=== PATIENT | male | born 1965 | race Caucasian/White ===

== ENCOUNTER 2016-08-26 11:25 | Emergency (ER) | payer BC ==
[2016-08-26 12:35] VITALS: BP 138/84
--- NOTE | 2016-08-26 12:50 | UC ---
Headache HPI - HPI Summary HPI Summary: three weeks of rapidly cyclining "sinus pressure and headache" on the right side. no obvious congestion, drainage, allergies. He has no focal neuro deficits. no fever. - History Of Current Complaint Chief Complaint: UCGeneralIllness Stated Complaint: SINUS COMPLAINT Time Seen by Provider: 08/26/16 12:33 Hx Obtained From: Patient Onset/Duration: Gradual Onset, Lasting Weeks Onset Of Symptoms: Gradual Timing: Intermittent, Lasting: Character: Dull, Throbbing, Pressure Location of Headache: Frontal, Temporal Aggravating Factor: Nothing Allevating Factors: Other (Noted In Comments) - He has tried decongestants, netti pots. Associated Signs And Symptoms: Positive: Sinus Pressure. Negative: Seizure, Nausea, Vomiting, Fever, Neck Pain, Neck Stiffness, Decreased LOC, Visual Changes - Risk Factors Meningitis Risk Factors: Negative - Allergies/Home Medications Allergies/Adverse Reactions: Allergies Allergy/AdvReac Type Severity Reaction Status Date / Time Rice Allergy GI Upset Verified 05/09/15 17:03 PMH/Surg Hx/FS Hx/Imm Hx Cardiovascular History Of: Reports: Hypertension - Surgical History Surgical History: Yes Surgery Procedure, Year, and Place: r leg benign tumor - Family History Known Family History: Positive: None - no known FH of sinus or ent disease. - Social History Alcohol Use: None Substance Use Type: None Smoking Status (MU): Never Smoked Tobacco - Immunization History Most Recent Influenza Vaccination: none Most Recent Tetanus Shot: unknown Review of Systems All Other Systems Reviewed And Are Negative: Yes Physical Exam Triage Information Reviewed: Yes Appearance: Well-Appearing, No Pain Distress, Well-Nourished Vital Signs: Initial Vital Signs Temp 99.0 F 08/26/16 12:30 Pulse 90 08/26/16 12:30 Resp 16 08/26/16 12:30 BP 138/84 08/26/16 12:30 Pulse Ox 97 08/26/16 12:30 Vital Signs Reviewed: Yes Eye Exam: Normal Eyes: Positive: Conjunctiva Clear, Conjunctiva Inflamed, Other: - EOMI no proptosis. no pain with eye movements.. Negative: Discharge ENT: Positive: Normal ENT inspection, Hearing grossly normal, Pharynx normal, TMs normal. Negative: Pharyngeal erythema, Nasal congestion, Nasal drainage, TM bulging, TM dull, TM red, Tonsillar swelling, Tonsillar exudate, Trismus, Muffled/hoarse voice Neck exam: Normal Neck: Positive: Supple, Nontender, No Lymphadenopathy. Negative: Nuchal Rigidity Respiratory Exam: Normal Respiratory: Positive: Chest non-tender, Lungs clear, Normal breath sounds, No respiratory distress, No accessory muscle use. Negative: Respiratory distress Cardiovascular: Positive: RRR, No Murmur, Pulses Normal. Negative: Tachycardia Abdomen Description: Positive: Nontender, No Organomegaly, Soft Musculoskeletal: Positive: Strength Intact, ROM Intact, No Edema Neurological Exam: Normal, Other - CN III-XII intact. normal narrow based gait. speech intact. Neurological: Positive: Alert, Muscle Tone Normal, Fatigued Psychological Exam: Normal Skin Exam: Normal Skin: Negative: rashes Headache Course/Dx - Course Course Of Treatment: It is difficult to tell if this is right sided headache that is rapidly cycling almost cluster headache in nature. He mentions sinus disease as the cause. we are getting ct as well as ct maxillofacial. If there is sinus disease then we will refer to ent. if no sinus disease, then he will f/ u with pcp. Exam and vitals intact. - Differential Dx/Diagnosis Differential Diagnosis/HQI/PQRI: CO2 Poisoning, CVA, TIA, Epidural Hematoma, Subdural Hematoma, Meningitis, Migraine, Sinus Headache, Subarachnoid Hemorrhage , Temporal Arteritis, Tension Headache, Viral Syndrome Provider Diagnoses: headaches. Discharge - Discharge Plan Condition: Good Disposition: HOME Patient Education Materials: General Headache (ED) Referrals: Anuja Salomon MD [Primary Care Provider] - 1 Day
--- NOTE | 2016-08-26 13:16 | RAD ---
INDICATION: Headaches. Sinus pressure. COMPARISON: None TECHNIQUE: Noncontrast axial source images were acquired from the skull base to the vertex. FINDINGS: Ventricles/sulci: The ventricles and cisterns are normal in size and configuration for age. Brain parenchyma: There is no focal parenchymal finding, evidence of intracranial mass, or intracranial mass effect. Intracranial hemorrhage:None. Extra-axial spaces: There are no abnormal extra axial fluid collections or evidence of extra-axial mass. Calvarium: There is no calvarial fracture or other calvarial abnormality. Scalp: There is no evidence of scalp or extracalvarial soft tissue abnormality. Paranasal sinuses/mastoid: The paranasal sinuses and mastoid air cells are clear. Other: None. IMPRESSION: No acute renal findings.
--- NOTE | 2016-08-26 13:17 | RAD ---
CLINICAL HISTORY: Right-sided headache and sinus pressure COMPARISON: None TECHNIQUE: Contiguous axial CT images were obtained through the paranasal sinuses, without intravenous contrast, with coronal and sagittal multiplanar reformations. FINDINGS: NASAL CAVITY: Septum: The nasal septum is deviated to the left. Right: Clear Left: Clear SINUSES AND DRAINAGE PATHWAYS: Frontal sinuses: Unremarkable. Maxillary sinuses: Unremarkable Ethmoid sinuses: Unremarkable. Ostiomeatal complex: Patent without obstruction or occlusion. Sphenoid sinuses: Unremarkable. Anatomic variations: No significant variations. Orbits: Unremarkable. Anterior cranial fossa: Normal. Other findings: None. IMPRESSION: UNREMARKABLE CT OF THE PARANASAL SINUSES. NO EROSION, OSTEITIS, OR FLUID LEVEL
== END 2016-08-26 13:26 | disposition home or self-care (01) ==
LOC: UCCORT 11:25
DX: R51 Headache (principal)
CPT/HCPCS: 70450; 70486; 99211; G0463

== ENCOUNTER 2018-09-09 07:12 | Emergency (ER) | payer BC ==
[2018-09-09 07:22] VITALS: BP 138/82
--- NOTE | 2018-09-09 07:27 | UC ---
FLU HPI - HPI Summary HPI Summary: 2 DAYS OF COUGH, CONGESTION, BODY ACHES, FATIGUE, DOWNING, MYALGIAS. MILD DOWNING. TEMP 100 TODAY. NO N/V. DID HAVE FLU SHOT THIS SEASON. - History of Current Complaint Chief Complaint: UCGeneralIllness Stated Complaint: FEVER,COUGH,BODYACHES Time Seen by Provider: 09/09/18 07:25 Hx Obtained From: Patient Onset/Duration: Gradual Onset, Lasting Days, Still Present Severity Currently: Moderate Severity Initially: Moderate Pain Intensity: 0 Pain Scale Used: 0-10 Numeric Associated Signs & Symptoms: Positive: Fever, Myalgia, Cough, Sore Throat, Nasal Congestion, Headache - Allergy/Home Medications Allergies/Adverse Reactions: Allergies Allergy/AdvReac Type Severity Reaction Status Date / Time rice AdvReac GI Upset Verified 09/09/18 07:20 PMH/Surg Hx/FS Hx/Imm Hx Cardiovascular History: Hypertension - Surgical History Surgical History: Yes Surgery Procedure, Year, and Place: r leg benign tumor - Family History Known Family History: Positive: None - no known FH of sinus or ent disease. - Social History Alcohol Use: None Substance Use Type: None Smoking Status (MU): Never Smoked Tobacco - Immunization History Most Recent Influenza Vaccination: none Most Recent Tetanus Shot: unknown Review of Systems All Other Systems Reviewed And Are Negative: Yes Constitutional: Positive: Fever, Chills, Fatigue ENT: Positive: Sore Throat, Nasal Discharge Respiratory: Positive: Cough Cardiovascular: Positive: Negative Gastrointestinal: Positive: Negative Musculoskeletal: Positive: Myalgia Neurological: Positive: Headache Physical Exam Triage Information Reviewed: Yes Appearance: Well-Appearing, No Pain Distress, Well-Nourished Vital Signs: Initial Vital Signs Temp 98.7 F 09/09/18 07:20 Pulse 112 09/09/18 07:20 Resp 17 09/09/18 07:20 BP 138/82 09/09/18 07:20 Pulse Ox 97 09/09/18 07:20 Laboratory Tests 09/09/18 07:28 Influenza A (Rapid) Positive A Vital Signs Reviewed: Yes Eyes: Positive: Conjunctiva Clear ENT: Positive: Hearing grossly normal, Pharynx normal, TMs normal Neck: Positive: Supple, Nontender, No Lymphadenopathy Respiratory Exam: Normal Cardiovascular: Positive: Tachycardia Abdomen Description: Positive: Soft Musculoskeletal: Positive: No Edema Neurological: Positive: Alert Psychological: Positive: Age Appropriate Behavior Skin: Negative: Rashes Flu Course/Dx - Differential Dx/Diagnosis Provider Diagnosis: Influenza A Discharge - Sign-Out/Discharge Documenting (check all that apply): Patient Departure All imaging exams completed and their final reports reviewed: No Studies - Discharge Plan Condition: Stable Disposition: HOME Prescriptions: Oseltamivir CAP* [Tamiflu CAP*] 75 mg PO BID #10 cap Patient Education Materials: Influenza (ED) Referrals: Anuja Salomon MD [Primary Care Provider] - Additional Instructions: SWAB POSITIVE FOR INFLUENZA A. TAMIFLU TWICE DAILY FOR 5 DAYS. OTC MEDS NEEDED FOR FEVER, BODY ACHES. STAY WELL HYDRATED AND RESTED. SEEK FOLLOW-UP IF YOU ARE NOT IMPROVING EXPECTED. - Billing Disposition and Condition Condition: STABLE Disposition: Home
[2018-09-09 07:32] LABS: Influenza A Molecular POSITIVE (Negative)
== END 2018-09-09 08:10 | disposition home or self-care (01) ==
LOC: UCCORT 07:12
DX: J10.1 Influenza due to other identified influenza virus with other respiratory manifestations (principal); I10 Essential (primary) hypertension; Z91.09 Other allergy status, other than to drugs and biological substances
CPT/HCPCS: 99212; G0463

== ENCOUNTER 2018-10-06 21:54 | Emergency (ER) | payer BC ==
[2018-10-06 22:12] VITALS: BP 145/95
--- NOTE | 2018-10-06 22:24 | UC ---
Hypertension HPI - HPI Summary HPI Summary: 53 yo male noted an elevated BP at mall today no cp or sob has chronic headaches non smoker recent URI - History of Current Complaint Chief Complaint: UCGeneralIllness Stated Complaint: BLOOD PRESSURE CHECK Time Seen by Provider: 10/06/18 21:59 Hx Obtained From: Patient Onset/Duration: Gradual Onset Aggravating Factor(s): Other - has not been sleeping well lately Alleviating Factor(s): Rest Associated Signs And Symptoms: Negative: Chest Pain, Vision Changes, Anxiety Current Medications: Other - none - Allergies/Home Medications Allergies/Adverse Reactions: Allergies Allergy/AdvReac Type Severity Reaction Status Date / Time rice AdvReac GI Upset Verified 10/06/18 22:07 Home Medications: Home Medications Aspirin/Acetaminophen/Caffeine [Excedrin Migraine Caplet] 2 each PO Q12H PRN [History Confirmed 10/06/18] PMH/Surg Hx/FS Hx/Imm Hx Previously Healthy: Yes Psychological History: Anxiety - Surgical History Surgical History: Yes Surgery Procedure, Year, and Place: r leg benign tumor - Family History Known Family History: Positive: None - no known FH of sinus or ent disease., Hypertension - Social History Alcohol Use: None Substance Use Type: None Smoking Status (MU): Never Smoked Tobacco - Immunization History Most Recent Influenza Vaccination: none Most Recent Tetanus Shot: 04/20/15 Review of Systems All Other Systems Reviewed And Are Negative: Yes Constitutional: Positive: Negative Skin: Positive: Negative Eyes: Positive: Negative ENT: Positive: Negative Respiratory: Positive: Negative Cardiovascular: Positive: Negative Gastrointestinal: Positive: Negative Genitourinary: Positive: Negative Motor: Positive: Negative Neurovascular: Positive: Negative Musculoskeletal: Positive: Negative Neurological: Positive: Negative Psychological: Positive: Negative Physical Exam Triage Information Reviewed: Yes Appearance: Well-Appearing, No Pain Distress, Well-Nourished Vital Signs: Initial Vital Signs Temp 98 F 10/06/18 22:05 Pulse 88 10/06/18 22:05 Resp 18 10/06/18 22:05 BP 145/95 10/06/18 22:05 Pulse Ox 99 10/06/18 22:05 Vital Signs Reviewed: Yes Eyes: Positive: Conjunctiva Clear, Other: - fundi- no H/E, no av nicking ENT: Positive: Hearing grossly normal. Negative: Nasal congestion, Nasal drainage, Trismus, Muffled voice, Hoarse voice Neck: Positive: Supple, Nontender, No Lymphadenopathy Respiratory: Positive: Lungs clear, Normal breath sounds, No respiratory distress, No accessory muscle use Cardiovascular: Positive: RRR, No Murmur Musculoskeletal: Positive: ROM Intact, No Edema Neurological: Positive: Alert Psychological Exam: Normal Skin Exam: Normal Hypertension Course/Dx - Differential Dx/Diagnosis Provider Diagnosis: Elevated BP without diagnosis of hypertension Discharge - Sign-Out/Discharge Documenting (check all that apply): Patient Departure All imaging exams completed and their final reports reviewed: No Studies - Discharge Plan Condition: Stable Disposition: HOME Referrals: Anuja Salomon MD [Primary Care Provider] - 2 Weeks Additional Instructions: your BP here was 145/95 At present you do not need to be started on an antihypertensive but this warrants follow up recheck in a few weeks - Billing Disposition and Condition Condition: STABLE Disposition: Home
== END 2018-10-06 22:29 | disposition home or self-care (01) ==
LOC: UCCORT 21:54
DX: R03.0 Elevated blood-pressure reading, without diagnosis of hypertension (principal)
CPT/HCPCS: 99211; G0463

== ENCOUNTER 2019-01-20 07:29 | Emergency (ER) | payer BC ==
--- OUTSIDE RECORDS SUMMARY | 2019-01-20 07:38 | XMS REPORT | Continuity of Care Document ---
:1965 External Reference #:[id number] Author Name Anuja Salomon MD Address [address] [place] [id number] Care Team Providers Name Role Phone Anuja Salomon MD Care Team Information [employer] Unavailable Payers Date Identification Numbers Payment Provider Subscriber Policy Number: [id number] [employer] Norma Montalvo PayID: [id number] [address] [address] [place] [address] Problems Active Problems Provider Date Vitamin D deficiency Anuja Salomon MD Onset: 10/28/2013 Phobia Anuja Salomon MD Onset: 07/20/2013 Anxiety state Anuja Salomon MD Onset: 07/20/2013 Pure hyperglyceridemia Anuja Salomon MD Onset: 01/05/2015 Insomnia Anuja Salomon MD Onset: 12/31/2016 Hand joint stiff Anuja Salomon MD Onset: 01/01/2018 Impaired fasting glycaemia Anuja Salomon MD Onset: 05/18/2018 Resolved Problems Impaired fasting glycaemia Anuja Salomon MD Onset: 01/05/2015 Resolved: 07/14/2015 Benign essential hypertension Anuja Salomon MD Onset: 07/20/2013 Resolved: 11/23/2018 Family History Date Family Member(s) Observation Comments Father Hypertension Mother Hypertension Mother IBS Social History Type Date Description Comments Sex Unknown Education Highest level completed, Associates Degree Marital Status Lives With Spouse Lives With Daughter Pets 1 cat 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, 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 ETOH Use Denies alcohol use Tobacco Use Start: Unknown Patient has never smoked Allergies, Adverse Reactions, Alerts Description No Known Drug Allergies Medications Active Medications SIG Qnty Indications Ordering Date Provider Metformin HCL Take 1 Tablet By 60tabs E11.65 Anuja Salomon, 01/07/2019 500mg Mouth Twice MD Tablets Daily Venlafaxine HCL ER take 1 capsule 30caps F41.1 Anuja Salomon, 11/30/2018 75mg by mouth every MD Caps ER 24HR day Bupropion take 1 tablet by 30tabs F41.1 Anuja Salomon, 09/04/2018 Hydrochloride ER (XL) mouth every day MD 150mg Tablets ER 24HR Hydrocortisone apply twice a 28.350gm K64.9 Anuja Salomon, 11/13/2016 2.5% Cream day if needed MD until resolved Ondansetron 1 tablet by 30tabs F40.9 Anuja Salomon, 10/01/2016 4mg Tablets mouth every 8 MD Dispers hours as needed for nausea/vomiting Excedrin Extra as needed for Unknown Strength migraines [phone] Tablets History Medications Venlafaxine HCL ER 1 by mouth every 90tabs F41.1 Anuja Salomon, 2018 - 75mg day 11/30/2018 Tablets ER 24HR Venlafaxine HCL ER 1 by mouth every 90caps F41.1 Anuja Salomon, 2017 - 150mg day 10/14/2018 Caps ER 24HR Pramipexole 1 po every hs 30tabs G47.00 Anuja Salomon, 12/31/2016 - Dihydrochloride 04/03/2017 0.125mg Tablets Bupropion HCL ER (XL) 1 by mouth every 90tabs F41.1 Anuja Salomon, 2016 - 150mg day 09/04/2018 Tablets ER 24HR Verapamil HCL 1 po tid 90tabs R51 Anuja Salomon, 10/30/2016 - 80mg Tablets 11/13/2016 Prednisone 6 pills by mouth 21tabs R51 Anuja Salomon, 10/01/2016 - 10mg Tablets x 1 dose today, 10/30/2016 then decrease dose by 1 pill daily until gone. Wellbutrin XL 1 by mouth every 90tabs F41.1 Anuja Salomon, 04/21/2015 - 150mg Tablets day 12/31/2016 ER 24HR Venlafaxine HCL ER Take 1 Capsule 30caps F41.1 rBuce Lott, 01/23/2015 - 75mg By Mouth Every DO 05/17/2018 Caps ER 24HR Day Venlafaxine HCL ER 1 by mouth every 30caps Anuja Salomon, 01/05/2015 - 150mg day MD 01/23/2015 Caps ER 24HR Venlafaxine HCL ER Take One Capsule 90caps Anuja Salomon, 10/24/2014 - 75mg By Mouth Every MD 01/05/2015 Caps ER 24HR Day Ibuprofen 3 po q qd Anuja Salomon, 07/20/2013 - 200mg Tablets MD 05/17/2018 Ondansetron HCL 1 po q 4 hours 30Tabs Anuja Salomon, 07/20/2013 - 4mg Tablets prn nausea MD 10/01/2016 Effexor XR take one capsule 90caps Anuja Salomon, - 75mg Caps ER by mouth every MD 01/05/2015 24HR day Wellbutrin XL 1 by mouth every 90tabs Anuja Salomon, - 150mg Tablets day MD 01/31/2015 ER 24HR Advil 2 tab three Unknown - 200mg Tablets times a day as 10/06/2018 needed Immunizations CPT Code Status Date Vaccine Lot # [id number] Given 05/07/2018 Influenza Virus Vaccine,Quadrivalent,Split,Preserv Free, 0.5mL,Im Q2039 Given 06/12/2017 Flu Vaccine NOS Q2037 Given 06/20/2015 Fluvirin Immunization 19150 Given 04/21/2015 Tetanus And Diptheria Toxoids For Adult Use-preservative free 94286 Given 04/06/2012 Tdap (Adacel) Ages 7 And Above Only 15006 Refused 05/18/2018 Shingrix (Shingles) Zoster Vaccine HZV, Recombinant , Subunit, Adj Vital Signs Date Vital Result Comment 01/07/2019 1:58pm Weight 180.00 lb Heart Rate 84 /min BP Systolic 124 mmHg BP Diastolic 76 mmHg Respiratory Rate 18 /min Height 68.75 inches 5'8.75" O2 % BldC Oximetry 98 % Ra BMI (Body Mass Index) 26.8 kg/m2 11/23/2018 4:20pm Weight 190.00 lb Heart Rate 94 /min BP Systolic 130 mmHg BP Diastolic 78 mmHg Respiratory Rate 18 /min Height 68.75 inches 5'8.75" O2 % BldC Oximetry 98 % Ra BMI (Body Mass Index) 28.3 kg/m2 10/07/2018 10:43am Weight 192.00 lb Heart Rate 97 /min BP Systolic 132 mmHg BP Diastolic 88 mmHg Respiratory Rate 18 /min Height 68.75 inches 5'8.75" O2 % BldC Oximetry 98 % Ra BMI (Body Mass Index) 28.6 kg/m2 05/18/2018 3:35pm Weight 188.00 lb Heart Rate 90 /min BP Systolic 132 mmHg BP Diastolic 76 mmHg Respiratory Rate 18 /min Height 68.75 inches 5'8.75" O2 % BldC Oximetry 99 % Ra BMI (Body Mass Index) 28.0 kg/m2 02/10/2018 2:52pm Body Temperature 98.2 F Weight 190.38 lb Heart Rate 72 /min BP Systolic 124 mmHg BP Diastolic 78 mmHg Respiratory Rate 18 /min Height 68.75 inches 5'8.75" 01/01/18 BMI (Body Mass Index) 28.3 kg/m2 01/01/2018 4:04pm Weight 190.00 lb Heart Rate 76 /min BP Systolic 110 mmHg BP Diastolic 80 mmHg Respiratory Rate 18 /min Height 68.75 inches 5'8.75" 01/01/18 BMI (Body Mass Index) 28.3 kg/m2 11/19/2017 3:50pm Weight 195.00 lb Heart Rate 72 /min BP Systolic 124 mmHg BP Diastolic 78 mmHg Respiratory Rate 18 /min Height 68.75 inches 5'8.75" 08/27/16 BMI (Body Mass Index) 29.0 kg/m2 07/04/2017 4:12pm Weight 188.00 lb Heart Rate 76 /min BP Systolic 122 mmHg BP Diastolic 78 mmHg Respiratory Rate 18 /min Height 68.75 inches 5'8.75" 08/27/16 BMI (Body Mass Index) 28.0 kg/m2 04/03/2017 4:17pm Weight 190.00 lb Heart Rate 72 /min BP Systolic 120 mmHg BP Diastolic 72 mmHg Respiratory Rate 18 /min Height 68.75 inches 5'8.75" 08/27/16 BMI (Body Mass Index) 28.3 kg/m2 12/31/2016 2:58pm Weight 193.00 lb Heart Rate 76 /min BP Systolic 102 mmHg BP Diastolic 70 mmHg Respiratory Rate 18 /min Height 68.75 inches 5'8.75" 08/27/16 BMI (Body Mass Index) 28.7 kg/m2 11/13/2016 9:52am Weight 190.00 lb Heart Rate 76 /min BP Systolic 122 mmHg BP Diastolic 70 mmHg Respiratory Rate 18 /min Height 68.75 inches 5'8.75" 08/27/16 BMI (Body Mass Index) 28.3 kg/m2 10/30/2016 9:46am Body Temperature 95.9 F Weight 190.00 lb Heart Rate 76 /min BP Systolic 122 mmHg BP Diastolic 90 mmHg Respiratory Rate 18 /min Height 68.75 inches 5'8.75" 08/27/16 BMI (Body Mass Index) 28.3 kg/m2 10/01/2016 2:36pm Weight 193.00 lb Heart Rate 96 /min BP Systolic 138 mmHg BP Diastolic 88 mmHg Respiratory Rate 17 /min Height 68.75 inches 5'8.75" 08/27/16 BMI (Body Mass Index) 28.7 kg/m2 08/27/2016 3:50pm Weight 195.00 lb Heart Rate 76 /min BP Systolic 130 mmHg BP Diastolic 70 mmHg Respiratory Rate 18 /min Height 68.75 inches 5'8.75" 08/27/16 BMI (Body Mass Index) 29.0 kg/m2 03/28/2016 3:09pm Weight 192.00 lb Heart Rate 64 /min BP Systolic 110 mmHg BP Diastolic 70 mmHg Respiratory Rate 18 /min Height 68.75 inches 5'8.75" 09/20/15 BMI (Body Mass Index) 28.6 kg/m2 10/11/2015 10:05am Body Temperature 97.8 F Weight 187.00 lb Heart Rate 84 /min BP Systolic 120 mmHg BP Diastolic 80 mmHg Respiratory Rate 18 /min Height 68.75 inches 5'8.75" 09/20/15 BMI (Body Mass Index) 27.8 kg/m2 09/20/2015 11:30am Body Temperature 96.4 F Weight 186.00 lb Heart Rate 76 /min BP Systolic 122 mmHg BP Diastolic 80 mmHg Respiratory Rate 18 /min Height 68.75 inches 5'8.75" 09/20/15 BMI (Body Mass Index) 27.7 kg/m2 07/14/2015 9:58am Weight 189.00 lb Heart Rate 76 /min BP Systolic 118 mmHg BP Diastolic 70 mmHg Respiratory Rate 18 /min Height 68.75 inches 5'8.75" 01/05/15 BMI (Body Mass Index) 28.1 kg/m2 04/21/2015 10:27am Weight 186.00 lb Heart Rate 60 /min BP Systolic 130 mmHg BP Diastolic 90 mmHg Respiratory Rate 18 /min Height 68.75 inches 5'8.75" 01/05/15 BMI (Body Mass Index) 27.7 kg/m2 01/31/2015 3:09pm Weight 185.00 lb Heart Rate 76 /min BP Systolic 112 mmHg BP Diastolic 80 mmHg Respiratory Rate 18 /min Height 68.75 inches 5'8.75" 01/05/15 BMI (Body Mass Index) 27.5 kg/m2 01/05/2015 1:36pm Weight 190.00 lb Heart Rate 80 /min BP Systolic 124 mmHg BP Diastolic 68 mmHg Respiratory Rate 18 /min Height 68.75 inches 01/05/15 BMI (Body Mass Index) 28.3 kg/m2 08/22/2014 4:09pm Body Temperature 98.6 F Weight 187.00 lb Heart Rate 90 /min BP Systolic 110 mmHg BP Diastolic 82 mmHg Respiratory Rate 20 /min Height 68.75 inches 5'8.75" (Done On 07/20/13) O2 Saturation Level with Exercise 93 % BMI (Body Mass Index) 27.8 kg/m2 07/25/2014 2:25pm Body Temperature 98.8 F Weight 185.00 lb Heart Rate 72 /min BP Systolic 130 mmHg BP Diastolic 88 mmHg Respiratory Rate 18 /min Height 68.75 inches 5'8.75" (Done On 07/20/13) BMI (Body Mass Index) 27.5 kg/m2 05/02/2014 3:20pm Weight 183.00 lb Heart Rate 76 /min BP Systolic 112 mmHg BP Diastolic 72 mmHg Respiratory Rate 18 /min Height 68.75 inches 5'8.75" (Done On 07/20/13) 02/02/2014 9:31am Weight 183.00 lb Heart Rate 80 /min BP Systolic 112 mmHg BP Diastolic 70 mmHg Respiratory Rate 18 /min Height 68.75 inches 5'8.75" (Done On 07/20/13) 10/28/2013 2:50pm Weight 179.00 lb Heart Rate 76 /min BP Systolic 102 mmHg BP Diastolic 60 mmHg Respiratory Rate 18 /min Height 68.75 inches 5'8.75" (Done On 07/20/13) 10/18/2013 3:29pm Body Temperature 97.6 F Weight 180.00 lb Heart Rate 80 /min BP Systolic 110 mmHg BP Diastolic 80 mmHg Respiratory Rate 18 /min Height 68.75 inches 5'8.75" (Done On 07/20/13) O2 % BldC Oximetry 96 % 09/01/2013 10:41am Weight 180.00 lb Heart Rate 72 /min BP Systolic 110 mmHg BP Diastolic 80 mmHg Respiratory Rate 18 /min Height 68.75 inches 5'8.75" (Done On 07/20/13) 08/05/2013 2:32pm Weight 178.00 lb Heart Rate 88 /min BP Systolic 120 mmHg BP Diastolic 64 mmHg Respiratory Rate 18 /min Height 68.75 inches 5'8.75" (Done On 07/20/13) 07/20/2013 10:34am Weight 179.00 lb Heart Rate 80 /min BP Systolic 120 mmHg BP Diastolic 74 mmHg Respiratory Rate 18 /min Height 68.75 inches 5'8.75" Results Test Date Facility Test Result H/L Range Note Laboratory test 12/28/2018 [facility] Insulin 14.0 mIU/L (2.6-37.6) 1, 2 finding Lipid 12/28/2018 [facility] Cholesterol 227 mg/dL High 50-199 Triglycerides 388 mg/dL High 30-200 HDL 30 mg/dL 29-71 3 Chol/ HDL Ratio 7.6 ratio High 4.0-6.7 VLDL 78 mg/dL High 2-29 LDL (Calc) 120 mg/dL High 20-99 4 Comprehensive Met Panel-[facility] 12/28/2018 [facility] Sodium 136 mmol/L 135- 146 5 Potassium 4.3 mmol/L 3.5-5.2 Chloride# 100 mmol/L 97-110 6 Carbon Dioxide 26 mmol/L 24-34 Calcium 9.4 mg/dL 8.5-10.5 7 Glucose 295 mg/dL High 70-105 BUN 15 mg/dL 6-26 Creatinine 0.9 mg/dL 0.5-1.4 Total Protein 6.3 g/dL 6.0-8.0 Albumin 4.7 g/dL 3.6-4.9 Globulin 1.6 g/dL Low 2.0-3.5 A/G Ratio 2.9 Ratio High 1.0-2.2 Total Bilirubin 0.9 mg/dL 0.1-1.3 Alkaline Phosphatase 84 U/L 24-140 Alt 41 U/L 3-42 Ast 26 U/L 8-42 Anion Gap 10 mmol/L 5-15 8 Female Egfr 73 >60 9 Male Egfr 98 >60 10 [facility] A1[facility] 8.6 % High 4.1-5.9 Estimated Average Glucose Calc 200 mg/dL High 71-140 Lipid 11/13/[facility] Cholesterol 282 mg/dL High 50-199 11 Triglycerides 1806 mg/dL High 30-200 12 HDL 29 mg/dL 29-71 13 Chol/ HDL Ratio 9.6 ratio High 4.0-6.7 Hemoglobin A1c 11/13/[facility] A1c 8.2 % High 4.1-5.9 Estimated Average Glucose Calc 189 mg/dL High 71-140 Laboratory test finding 11/13/2018 [facility] PSA 1.520 ng/mL 0.000-4.000 14 CBC with Auto Diff-[facility]cm[facility] 11[facility]13[facility] WBC 6.4 K/uL 4.1-11.0 RBC 4.66 M/uL 4.60-6.10 Hemoglobin 15.0 gm/dL 13.5-18.0 Hematocrit 42.3 % 41.0-53.0 MCV 90.8 fL 80.0-97.0 MCH 32.2 pg High 27.0-32.0 MCHC 35.5 g/dL 32.0-36.0 15 RDW 14.0 % 11.5-14.5 PLT Count 178 K/ul 140-400 MPV 8.6 FL 7.1-10.7 Neutrophil 61.2 % 35.0-75.0 Lymphocyte 29.5 % 16.0-52.0 Monocyte 7.3 % 2.0-10.0 Eosinophil 1.3 % 0.0-5.0 Basophil 0.7 % 0.0-4.0 Abs Neutrophils 3.9 K/uL 2.1-8.0 Abs Lymphocytes 1.9 K/uL 0.8-5.5 Abs Monocytes 0.5 K/uL 0.1-1.0 Abs Eosinophils 0.1 K/uL 0.0-0.5 Abs Basophils 0.0 K/uL 0.0-0.3 Laboratory test finding 11/13/2018 [facility] TSH 2.15 uIU/mL 0.35-4.94 Comprehensive Met Panel-[facility] 11/13/2018 [facility] Sodium 134 mmol/L Low 135 -146 16 Potassium 4.2 mmol/L 3.5-5.2 17 Chloride# 98 mmol/L 97-110 18 Carbon Dioxide 24 mmol/L 24-34 Calcium 9.4 mg/dL 8.5-10.5 19 Glucose 322 mg/dL High 70-105 BUN 15 mg/dL 6-26 Creatinine 0.8 mg/dL 0.5-1.4 Total Protein 6.6 g/dL 6.0-8.0 Albumin 4.7 g/dL 3.6-4.9 Globulin 1.9 g/dL Low 2.0-3.5 A/G Ratio 2.5 Ratio High 1.0-2.2 Total Bilirubin 0.9 mg/dL 0.1-1.3 Alkaline Phosphatase 71 U/L 24-140 Alt 64 U/L High 3-42 Ast 41 U/L 8-42 Anion Gap 12 mmol/L 5-15 20 Female Egfr 81 >60 21 Male Egfr 101 >60 22 Laboratory test 05/28/2018 [facility](Fecal Occult Negative Negative finding Blood) Hemoglobin A1c 05/11/2018 [facility] Hemoglobin A1c 6.1 % High 4.1-5.9 23 Estimated Average Glucose Calc 128 mg/dL 71-140 Basic (BMP) 05/11/2018 [facility] Sodium 142 mmol/L 135-146 24 Potassium 4.3 mmol/L 3.5-5.2 Chloride# 104 mmol/L 97-110 25 Carbon Dioxide 30 mmol/L 24-34 Glucose 145 mg/dL High 70-105 BUN 11 mg/dL 6-26 Creatinine 0.9 mg/dL 0.5-1.4 Calcium 9.4 mg/dL 8.5-10.2 Non Olga Egfr >60 >60 26 Olga Egfr >60 >60 27 Anion Gap 8 mmol/L 5-15 28 Comprehensive Met Panel-[facility] 01/07/2018 [facility] Sodium 138 mmol/L 135- 146 29, 30 Potassium 4.3 mmol/L 3.5-5.2 Chloride# 101 mmol/L 97-110 31 Carbon Dioxide 28 mmol/L 24-34 Glucose 200 mg/dL High 70-105 BUN 14 mg/dL 6-26 Creatinine 1.0 mg/dL 0.5-1.4 Calcium 9.4 mg/dL 8.5-10.2 Total Protein 6.4 g/dL 6.0-8.0 Albumin 4.7 g/dL 3.6-4.9 Globulin 1.7 g/dL Low 2.0-3.5 A/G Ratio 2.8 Ratio High 1.0-2.2 Total Bilirubin 0.6 mg/dL 0.1-1.3 Alkaline Phosphatase 73 U/L 24-140 Alt 53 U/L High 3-42 Ast 32 U/L 8-42 Olga Egfr >60 >60 32 Non Olga Egfr >60 >60 33 Anion Gap 9 mmol/L 5-15 34 CBC with Auto Diff-fcmg 01/07/2018 [facility] WBC 5.5 K/uL 4.1-11.0 RBC 4.88 M/uL 4.60-6.10 Hemoglobin 15.5 gm/dL 13.5-18.0 Hematocrit 44.0 % 41.0-53.0 MCV 90.2 fL 80.0-97.0 MCH 31.8 pg 27.0-32.0 MCHC 35.2 g/dL 32.0-36.0 RDW 13.0 % 11.5-14.5 PLT Count 170 K/ul 140-400 MPV 9.3 FL 7.1-10.7 Neutrophil 62.8 % 35.0-75.0 Lymphocyte 28.4 % 16.0-52.0 Monocyte 6.5 % 2.0-10.0 Eosinophil 1.7 % 0.0-5.0 Basophil 0.6 % 0.0-4.0 Abs Neutrophils 3.5 K/uL 2.1-8.0 Abs Lymphocytes 1.6 K/uL 0.8-5.5 Abs Monocytes 0.4 K/uL 0.1-1.0 Abs Eosinophils 0.1 K/uL 0.0-0.5 Abs Basophils 0.0 K/uL 0.0-0.3 Laboratory test finding 01/07/2018 [facility] Esr 2 mm/hr 0-15 Rheumatoid Factor <10.0 IU/mL 0.0-10.0 CCP Antibody Igg Negative Negative Laboratory test 04/25/2017 [facility](Fecal Occult Negative Negative finding Blood) Hepatic Panel (LFT) 03/27/2017 [facility] Total Protein 6.2 g/dL 6.0-8.0 35 Albumin 4.6 g/dL 3.6-4.9 Total Bilirubin 0.7 mg/dL 0.1-1.3 Direct Bilirubin 0.1 mg/dL 0.0-0.4 Alkaline Phosphatase 75 U/L 24-140 Alt 60 U/L High 3-42 Ast 34 U/L 8-42 Basic (BMP) 03/27/2017 [facility] Sodium 140 mmol/L 135-146 36 Potassium 4.3 mmol/L 3.5-5.2 Chloride# 103 mmol/L 97-110 37 Carbon Dioxide 27 mmol/L 24-34 Glucose 127 mg/dL High 70-105 Creatinine 1.0 mg/dL 0.5-1.4 Calcium 9.4 mg/dL 8.5-10.2 Non Olga Egfr >60 >60 38 Olga Egfr >60 >60 39 Anion Gap 10 mmol/L 7-16 40 BUN 13 mg/dL 6-26 Hemoglobin A1c 03/27/2017 [facility] Hemoglobin A1c 5.4 % 4.1-5.9 Estimated Average Glucose Calc 108 71-140 Laboratory test 09/19/2016 [facility] PSA 2.080 ng/mL 0.000-4.000 41, 42 finding Lipid 09/19/2016 [facility] Cholesterol 189 mg/dL 50-199 Triglycerides 331 mg/dL High 30-200 HDL 29 mg/dL 29-71 43 Chol/ HDL Ratio 6.5 ratio 4.0-6.7 VLDL 66 mg/dL High 2-29 LDL (Calc) 94 mg/dL 20-99 44 Laboratory test finding 09/19/2016 [facility] TSH 0.83 uIU/mL 0.35-4.94 Comprehensive Metabolic (CMP) 09/19/2016 [facility] Sodium 141 mmol/L 135- 146 45 Potassium 4.2 mmol/L 3.5-5.2 Chloride# 103 mmol/L 97-110 46 Carbon Dioxide 28 mmol/L 24-34 Glucose 129 mg/dL High 70-105 BUN 11 mg/dL 6-26 Creatinine 0.9 mg/dL 0.5-1.4 Calcium 9.2 mg/dL 8.5-10.2 Total Protein 6.7 g/dL 6.0-8.0 Albumin 4.7 g/dL 3.6-4.9 Globulin 2.0 g/dL 2.0-3.5 A/G Ratio 2.4 Ratio High 1.0-2.2 Total Bilirubin 0.8 mg/dL 0.1-1.3 Alkaline Phosphatase 73 U/L 24-140 Alt 62 U/L High 3-42 Ast 35 U/L 8-42 Olga Egfr >60 >60 47 Non Olga Egfr >60 >60 48 Anion Gap 14 mmol/L 7-16 49 CBC With Auto Diff 09/19/2016 [facility] WBC 8.2 K/uL 4.1-11.0 RBC 5.25 M/uL 4.60-6.10 Hemoglobin 16.7 gm/dL 13.5-18.0 Hematocrit 47.9 % 41.0-53.0 MCV 91.1 fL 80.0-97.0 MCH 31.7 pg 27.0-32.0 MCHC 34.8 g/dL 32.0-36.0 RDW 13.6 % 11.5-14.5 PLT Count 170 K/ul 140-400 Neutrophil 74.2 % 35.0-75.0 Lymphocyte 15.6 % Low 16.0-52.0 Monocyte 7.9 % 2.0-10.0 Eosinophil 1.7 % 0.0-5.0 Basophil 0.6 % 0.0-4.0 Abs Neutrophils 6.1 K/uL 2.1-8.0 Abs Lymphocytes 1.3 K/uL 0.8-5.5 Abs Monocytes 0.7 K/uL 0.1-1.0 Abs Eosinophils 0.1 K/uL 0.0-0.5 Abs Basophils 0.0 K/uL 0.0-0.3 Laboratory test finding 09/19/2016 [facility] Vit D,25 Hydroxy 11 ng/mL Low 31-100 CBC With Auto Diff 09/20/2015 [facility] WBC 5.9 K/uL 4.1-11.0 50 RBC 5.06 M/uL 4.60-6.10 Hemoglobin 15.8 gm/dL 13.5-18.0 Hematocrit 46.3 % 41.0-53.0 MCV 91.5 fL 80.0-97.0 MCH 31.1 pg 27.0-32.0 MCHC 34.0 g/dL 32.0-36.0 RDW 13.2 % 11.5-14.5 PLT Count 177 K/ul 140-400 Neutrophil 60.8 % 35.0-75.0 Lymphocyte 28.9 % 16.0-52.0 Monocyte 8.1 % 2.0-10.0 Eosinophil 1.5 % 0.0-5.0 Basophil 0.7 % 0.0-4.0 Abs Neutrophils 3.6 K/uL 2.1-8.0 Abs Lymphocytes 1.7 K/uL 0.8-5.5 Abmon 0.5 K/uL 0.1-1.0 Abs Eosinophils 0.1 K/uL 0.0-0.5 Abs Basophils 0.0 K/uL 0.0-0.3 Hepatic Panel (LFT) 09/20/2015 [facility] Total Protein 6.8 g/dL 6.0-8.0 Albumin 4.8 g/dL 3.6-4.9 Total Bilirubin 0.8 mg/dL 0.1-1.3 Direct Bilirubin 0.1 mg/dL 0.0-0.4 Alkaline Phosphatase 67 U/L 24-140 Alt 46 U/L High 3-42 Ast 28 U/L 8-42 Basic (BMP) 09/20/2015 [facility] Sodium 138 mmol/L 134-142 Potassium 4.2 mmol/L 3.5-5.2 Chloride 101 mmol/L 97-109 Carbon Dioxide 29 mmol/L 24-34 Glucose 92 mg/dL 70-105 BUN 13 mg/dL 6-26 Creatinine 0.8 mg/dL 0.5-1.4 Calcium 9.6 mg/dL 8.5-10.2 Anion Gap 12 mmol/L 6-14 Non Olga Egfr >60 >60 51 Olga Egfr >60 >60 52 Laboratory test finding 09/20/2015 [facility] CRP (C-Reactive) 0.04 mg/dL 0.00-0.75 Hepatic Panel (LFT) 07/25/2015 [facility] Total Protein 6.8 g/dL 6.0-8.0 53 Albumin 4.7 g/dL 3.6-4.9 Total Bilirubin 1.0 mg/dL 0.1-1.3 Direct Bilirubin 0.1 mg/dL 0.0-0.4 Alkaline Phosphatase 57 U/L 24-140 Alt 43 Specimen Slig <SEE NOTE> U/L High 3-42 54 Ast 28 U/L 8-42 Lipid 07/25/2015 [facility] Cholesterol 207 mg/dL High 50-199 Triglycerides 249 mg/dL High 30-200 HDL 30 mg/dL 29-71 55 Chol/ HDL Ratio 6.9 ratio High 4.0-6.7 VLDL 50 mg/dL High 2-29 LDL (Calc) 127 mg/dL High 20-99 56 Celiac Disease Panel-RL 07/25/2015 [facility] Gliadin Peptide Iga 4 [arb'U] (<20) 57 Gliadin Peptide Igg 2 [arb'U] (<20) 58 Iga @ 135 mg/dL (83-407) Transglutaminase Iga 4 [arb'U] (<20) 59 Transglutaminase Igg 2 [arb'U] (<20) 60 Laboratory test finding 07/25/2015 [facility] H Pylori AB Igg <0.40 U/mL (< 0.90) 61 H Pylori AB Igm 0.2 EV 62 Laboratory test finding 07/10/2015 [facility] Vit D,25 Hydroxy 28 ng/mL Low 31-100 63 Basic (BMP) 07/10/2015 [facility] Sodium 138 mmol/L 134-142 Potassium 4.3 mmol/L 3.5-5.2 Chloride 102 mmol/L 97-109 Carbon Dioxide 29 mmol/L 24-34 Glucose 104 mg/dL 70-105 BUN 14 mg/dL 6-26 Creatinine 0.9 mg/dL 0.5-1.4 Calcium 9.2 mg/dL 8.5-10.2 Anion Gap 11 mmol/L 6-14 Non Olga Egfr >60 >60 64 Olga Egfr >60 >60 65 CBC With Auto Diff 07/10/2015 [facility] WBC 6.2 K/uL 4.1-11.0 RBC 5.09 M/uL 4.60-6.10 Hemoglobin 15.9 gm/dL 13.5-18.0 Hematocrit 46.3 % 41.0-53.0 MCV 90.8 fL 80.0-97.0 MCH 31.2 pg 27.0-32.0 MCHC 34.3 g/dL 32.0-36.0 RDW 13.5 % 11.5-14.5 PLT Count 163 K/ul 140-400 Neutrophil 62.4 % 35.0-75.0 Lymphocyte 28.6 % 16.0-52.0 Monocyte 7.1 % 2.0-10.0 Eosinophil 1.4 % 0.0-5.0 Basophil 0.5 % 0.0-4.0 Abs Neutrophils 3.9 K/uL 2.1-8.0 Abs Lymphocytes 1.8 K/uL 0.8-5.5 Abmon 0.4 K/uL 0.1-1.0 Abs Eosinophils 0.1 K/uL 0.0-0.5 Abs Basophils 0.0 K/uL 0.0-0.3 Laboratory test finding 07/10/2015 [facility] Hemoglobin A1c 5.1 % 4.1-5.9 Laboratory test finding 01/05/2015 [facility] Hemoglobin A1c 5.1 % 4.1-5.9 66 Vit D,25 Hydroxy 17 ng/mL Low 31-100 Basic (BMP) 01/05/2015 [facility] Sodium 137 Specimen Ismael <SEE NOTE> mmol/L 134-142 67 Potassium 3.9 mmol/L 3.5-5.2 Chloride 102 mmol/L 97-109 Carbon Dioxide 30 mmol/L 24-34 Glucose 107 mg/dL High 70-105 BUN 14 mg/dL 6-26 Creatinine 0.9 mg/dL 0.5-1.4 Calcium 9.3 mg/dL 8.5-10.2 Anion Gap 9 mmol/L 6-14 Non Olga Egfr >60 >60 68 Olga Egfr >60 >60 69 LDL Cholesterol 07/18/2014 [facility] Cholesterol 186 mg/ dL < 200 70 Profile (315)- - Triglycerides 463 mg/dL < 150 71 HDL Cholesterol 27 mg/dL > 40 72 LDL-Cholesterol See Note mg/dL < 100 73 Laboratory test 07/18/2014 [facility] Thyroid Stim 1.02 uIU/mL 0.36-3.74 finding (315)- - Hormone Vitamin D,25-Hydroxy 9.6 ng/mL Low 30.0-100.0 74 CBC 07/18/2014 [facility] White Blood Count 4.9 K/uL 3.4-10.5 (315)- - Red Blood Count 5.01 M/uL 4.20-5.80 Hemoglobin 15.6 gm/dL 12.8-17.0 Hematocrit 43.6 % 38.0-48.0 Mean Cell Volume 87.0 fl 80.0-96.0 Mean Corpuscular HGB 31.1 pg 27.0-33.0 Mean Corpuscular HGB Conc 35.8 g/dL 31.7-36.0 Platelet Count 182 K/uL 150-400 Red Cell Distri Width %CV 13.1 % 11.6-15.8 Mean Platelet Volume 9.6 fL 6.6-10.6 Comprehensive Metabolic 07/18/2014 [facility] Glucose 113 mg/dL High 74-106 Panel (315)- - BUN 17 mg/dL 7-18 Creatinine 1.1 mg/dL 0.6-1.3 Glom Filtration Rate, Estimate >60 mL/min >60 If >60 mL/min >60 75 BUN/Creat 15.4 ratio Sodium 140 mmol/L 136-145 Potassium 4.3 mmol/L 3.5-5.1 Chloride 106 mmol/L 98-107 Carbon Dioxide 30 mmol/L 21-32 Anion Gap 8 mEq/L 8-16 Calcium 8.7 mg/dL 8.5-10.1 Total Protein 6.8 g/dL 6.4-8.2 Albumin 4.0 g/dL 3.4-5.0 Globulin 2.8 g/dL 1.9-4.3 Alb/Glob 1.4 ratio Bilirubin,Total 0.6 mg/dL 0.2-1.0 Sgot/Ast 25 U/L 15-37 SGPT/Alt 41 U/L 12-78 Alkaline Phosphatase 78 U/L 45-117 Laboratory test 07/18/2014 [facility] Vitamin B12 357 pg/ mL [id number] 76 finding (315)- - Laboratory test 04/25/2014 N2N/CCD Import Alt 28.0 U/L 21.0-72.0 finding Ast 26.0 U/L 17.0-59.0 Vitamin B12 375.0 pg/mL 200.0-900.0 Vitamin D 22.3 ng/mL Low 30.0-100.0 Lipid Panel 04/25/2014 N2N/CCD Import Chol/HDL Ratio 4.6 ratio Cholesterol 158.0 mg/dL 50.0-199.0 HDL 34.0 mg/dL 29.0-67.0 LDL, Calculated 76.4 mg/dL 20.0-129.0 Triglycerides 238.0 mg/dL 30.0-249.0 vLDL 47.6 ng/dL Laboratory test finding 10/21/2013 N2N/CCD Import Alt 29.0 U/L 21.0- 72.0 Ast 22.0 U/L 17.0-59.0 Vitamin D 23.4 ng/mL Low 30.0-100.0 Lipid Panel 10/21/2013 N2N/CCD Import Chol/HDL Ratio 5.0 ratio Cholesterol 161.0 mg/dL 50.0-199.0 HDL 32.0 mg/dL 29.0-67.0 LDL, Calculated 99.8 mg/dL 20.0-129.0 Triglycerides 146.0 mg/dL 30.0-249.0 vLDL 29.2 ng/dL Laboratory test 09/01/2013 N2N/CCD Import Surgical See Note 77 finding Pathology Laboratory test 07/23/2013 N2N/CCD Import % Baso. 1.1 % 0.0-2.0 finding % Eos. 1.3 % 0.0-4.0 % Lymph 27 % 20-44 % [place] 7.9 % 2.0-10.0 % [place] 63 % 50-70 A/G Ratio 2.4 ratio High 1.6-2.2 Absolute Baso. 0.1 K/ul 0.0-0.3 Absolute Eos. 0.1 K/ul 0.0-0.5 Absolute Lymph. 1.3 K/ul 0.8-4.8 Absolute [place]. 0.4 K/ul 0.1-1.0 Absolute Vinicio. 3.03 K/ul 2.05-7.63 Albumin 4.6 g/dL 3.5-5.0 Alk. Phos. 42.0 U/L 30.0-126.0 Alt 23.0 U/L 21.0-72.0 Anion Gap 9.0 mmol/L Low 10.0-20.0 Ast 23.0 U/L 17.0-59.0 BUN 16.0 mg/dL 9.0-21.0 BUN/Creat Ratio 14.5 ratio 12.0-20.0 Calcium 9.4 mg/dL 8.7-10.5 Chloride 107.0 mmol/L 98.0-107.0 Co2 25.0 mmol/L 22.0-30.0 Creatinine-Serum 1.1 mg/dL 0.8-1.5 Globulin 1.9 g/dL Low 2.7-4.3 Glucose 95.0 mg/dL 75.0-110.0 HCT 43.0 % 37.0-51.0 HGB 15.3 Gm/dl 12.0-16.0 MCH 32.3 pg High 26.0-32.0 MCHC 35.6 g/dL 31.0-36.0 MCV 90.9 Fl 80.0-97.0 MPV 7.2 fL 6.0-10.0 PLT 205 K/ul 140-440 Potasium 4.5 mmol/L 3.6-5.0 RBC 4.7 M/ul 4.2-6.3 RDW 11.2 % Low 11.5-14.5 Sodium 141.0 mmil/L 137.0-145.0 TSH 1.18 uIU/ml 0.50-6.00 Total Bilirubin 0.6 mg/dL 0.2-1.3 Total Protein 6.5 g/dL 6.3-8.2 Vitamin B12 263.0 pg/mL 200.0-900.0 Vitamin D 8.9 ng/mL Low 30.0-100.0 WBC 4.8 K/ul 4.1-10.9 eGFR 79.9 mi/minper1.73 78 Lipid Panel 07/23/2013 N2N/CCD Import Chol/HDL Ratio 4.4 ratio Cholesterol 171.0 mg/dL 50.0-199.0 HDL 39.0 mg/dL 29.0-67.0 LDL, Calculated 115.2 mg/dL 20.0-129.0 Triglycerides 84.0 mg/dL 30.0-249.0 vLDL 16.8 ng/dL 1 6 weeks 2 ADULT REFERENCE RANGE New Assay and Reference Range in use 02/09/18. Unless otherwise specified, testing performed by [facility] [address] [place] [id number] 3 Per NCEP ATP III Guidelines: Results lower than 40 mg/dL are suggestive of increased risk for coronary artery disease. Results > or=to 60 mg/dL are considered a negative risk factor. 4 Per NCEP ATP III Guidelines: Normal Population <130 Patients with medical conditions: CHD/DM Optimal: <100 Borderline high: 130-159 High: 160-189 Very high: >189 5 Updated reference range on new analyzer 6 Updated reference range on new analyzer 7 Updated reference range 10-21-2018 8 Updated Reference Range 9 Concerning GFR Guidelines for Americans: Normal function or mild renal disease, if clinically at risk: >/=60 mL/min Moderately decreased: 30-59 Severely decreased: 15-29 Renal failure: <15 There is reduced accuracy above 60ml/min/1.73 m squared, but the numeric value may be clinically useful in the near 60 range 10 Concerning GFR Guidelines: Normal function or mild renal disease, if clinically at risk: >/=60 mL/min Moderately decreased: 30-59 Severely decreased: 15-29 Renal failure: <15 There is reduced accuracy above 60ml/min/1.73 m squared, but the numeric value may be clinically useful in the near 60 range Glomerular Filtration Rate (GFR) is estimated based on the CKD-EPI equation, which assumes a steady state for creatinine as recommended by the National Kidney Disease Education Program in conjunction with the National Institutes of Health and the National Kidney Foundation. Clinical conditions in which it may be necessary to measure GFR by using clearance methods include extremes of age and body size, severe malnutrition or obesity, diseases of skeletal muscle, paraplegia or quadriplegia, vegetarian diet, rapidly changing kidney function, and calculation of the dose of potentially toxic drugs that are excreted by the kidneys. 11 6 mos 12 Due to a triglyceride result of >1300 a direct LDL cannot be performed. In addition an LDL and VLDL cannot be calculated. Specimen Slightly Lipemic 13 Per NCEP ATP III Guidelines: Results lower than 40 mg/dL are suggestive of increased risk for coronary artery disease. Results > or=to 60 mg/dL are considered a negative risk factor. 14 Beginning 08/18/06 PSA values assayed at [facility] uses chemiluminescence methodology manufactured by [employer] for use on the DXI analyzer. Values obtained with different assay methods or kits can not be used interchangeably. Serum PSA measurement is not an absolute test for malignancy. The PSA value should be used in conjunction with information available from clinical evaluation and other diagnostic procedures. 15 sample very lipemic sample was prewarmed 16 Updated reference range on new analyzer 17 Specimen Slightly Hemolyzed 18 Updated reference range on new analyzer 19 Updated reference range 10-21-2018 20 Updated Reference Range 21 Concerning GFR Guidelines for Americans: Normal function or mild renal disease, if clinically at risk: >/=60 mL/min Moderately decreased: 30-59 Severely decreased: 15-29 Renal failure: <15 There is reduced accuracy above 60ml/min/1.73 m squared, but the numeric value may be clinically useful in the near 60 range 22 Concerning GFR Guidelines: Normal function or mild renal disease, if clinically at risk: >/=60 mL/min Moderately decreased: 30-59 Severely decreased: 15-29 Renal failure: <15 There is reduced accuracy above 60ml/min/1.73 m squared, but the numeric value may be clinically useful in the near 60 range Glomerular Filtration Rate (GFR) is estimated based on the CKD-EPI equation, which assumes a steady state for creatinine as recommended by the National Kidney Disease Education Program in conjunction with the National Institutes of Health and the National Kidney Foundation. Clinical conditions in which it may be necessary to measure GFR by using clearance methods include extremes of age and body size, severe malnutrition or obesity, diseases of skeletal muscle, paraplegia or quadriplegia, vegetarian diet, rapidly changing kidney function, and calculation of the dose of potentially toxic drugs that are excreted by the kidneys. 23 3 24 Updated reference range on new analyzer 25 Updated reference range on new analyzer 26 Concerning GFR Guidelines: Normal function or mild renal disease, if clinically at risk: >/=60 mL/min Moderately decreased: 30-59 Severely decreased: 15-29 Renal failure: <15 Glomerular Filtration Rate (GFR) is estimated based on the MDRD equation, which assumes a steady state for creatinine as recommended by the National Kidney Disease Education Program in conjunction with the National Institutes of Health and the National Kidney Foundation. Clinical conditions in which it may be necessary to measure GFR by using clearance methods include extremes of age and body size, severe malnutrition or obesity, diseases of skeletal muscle, paraplegia or quadriplegia, vegetarian diet, rapidly changing kidney function, and calculation of the dose of potentially toxic drugs that are excreted by the kidneys. 27 Concerning GFR Guidelines for Americans: Normal function or mild renal disease, if clinically at risk: >/=60 mL/min Moderately decreased: 30-59 Severely decreased: 15-29 Renal failure: <15 28 Updated Reference Range 29 30 Updated reference range on new analyzer 31 Updated reference range on new analyzer 32 Concerning GFR Guidelines for Americans: Normal function or mild renal disease, if clinically at risk: >/=60 mL/min Moderately decreased: 30-59 Severely decreased: 15-29 Renal failure: <15 33 Concerning GFR Guidelines: Normal function or mild renal disease, if clinically at risk: >/=60 mL/min Moderately decreased: 30-59 Severely decreased: 15-29 Renal failure: <15 Glomerular Filtration Rate (GFR) is estimated based on the MDRD equation, which assumes a steady state for creatinine as recommended by the National Kidney Disease Education Program in conjunction with the National Institutes of Health and the National Kidney Foundation. Clinical conditions in which it may be necessary to measure GFR by using clearance methods include extremes of age and body size, severe malnutrition or obesity, diseases of skeletal muscle, paraplegia or quadriplegia, vegetarian diet, rapidly changing kidney function, and calculation of the dose of potentially toxic drugs that are excreted by the kidneys. 34 Updated Reference Range 35 3 mos 36 Updated reference range on new analyzer 37 Updated reference range on new analyzer 38 Concerning GFR Guidelines: Normal function or mild renal disease, if clinically at risk: >/=60 mL/min Moderately decreased: 30-59 Severely decreased: 15-29 Renal failure: <15 Glomerular Filtration Rate (GFR) is estimated based on the MDRD equation, which assumes a steady state for creatinine as recommended by the National Kidney Disease Education Program in conjunction with the National Institutes of Health and the National Kidney Foundation. Clinical conditions in which it may be necessary to measure GFR by using clearance methods include extremes of age and body size, severe malnutrition or obesity, diseases of skeletal muscle, paraplegia or quadriplegia, vegetarian diet, rapidly changing kidney function, and calculation of the dose of potentially toxic drugs that are excreted by the kidneys. 39 Concerning GFR Guidelines for Americans: Normal function or mild renal disease, if clinically at risk: >/=60 mL/min Moderately decreased: 30-59 Severely decreased: 15-29 Renal failure: <15 40 Updated reference range on new analyzer 41 6 mos 42 Beginning 08/18/06 PSA values assayed at [facility] uses chemiluminescence methodology manufactured by [employer] for use on the DXI analyzer. Values obtained with different assay methods or kits can not be used interchangeably. Serum PSA measurement is not an absolute test for malignancy. The PSA value should be used in conjunction with information available from clinical evaluation and other diagnostic procedures. 43 Per NCEP ATP III Guidelines: Results lower than 40 mg/dL are suggestive of increased risk for coronary artery disease. Results > or=to 60 mg/dL are considered a negative risk factor. 44 Per NCEP ATP III Guidelines: Normal Population <130 Patients with medical conditions: CHD/DM Optimal: <100 Borderline high: 130-159 High: 160-189 Very high: >189 45 Updated reference range on new analyzer 46 Updated reference range on new analyzer 47 Concerning GFR Guidelines for Americans: Normal function or mild renal disease, if clinically at risk: >/=60 mL/min Moderately decreased: 30-59 Severely decreased: 15-29 Renal failure: <15 48 Concerning GFR Guidelines: Normal function or mild renal disease, if clinically at risk: >/=60 mL/min Moderately decreased: 30-59 Severely decreased: 15-29 Renal failure: <15 Glomerular Filtration Rate (GFR) is estimated based on the MDRD equation, which assumes a steady state for creatinine as recommended by the National Kidney Disease Education Program in conjunction with the National Institutes of Health and the National Kidney Foundation. Clinical conditions in which it may be necessary to measure GFR by using clearance methods include extremes of age and body size, severe malnutrition or obesity, diseases of skeletal muscle, paraplegia or quadriplegia, vegetarian diet, rapidly changing kidney function, and calculation of the dose of potentially toxic drugs that are excreted by the kidneys. 49 Updated reference range on new analyzer 50 today 51 Concerning GFR Guidelines: Normal function or mild renal disease, if clinically at risk: >/=60 mL/min Moderately decreased: 30-59 Severely decreased: 15-29 Renal failure: <15 Glomerular Filtration Rate (GFR) is estimated based on the MDRD equation, which assumes a steady state for creatinine as recommended by the National Kidney Disease Education Program in conjunction with the National Institutes of Health and the National Kidney Foundation. Clinical conditions in which it may be necessary to measure GFR by using clearance methods include extremes of age and body size, severe malnutrition or obesity, diseases of skeletal muscle, paraplegia or quadriplegia, vegetarian diet, rapidly changing kidney function, and calculation of the dose of potentially toxic drugs that are excreted by the kidneys. 52 Concerning GFR Guidelines for Americans: Normal function or mild renal disease, if clinically at risk: >/=60 mL/min Moderately decreased: 30-59 Severely decreased: 15-29 Renal failure: <15 53 soon 54 43 Specimen Slightly Hemolyzed 55 Per NCEP ATP III Guidelines: Results lower than 40 mg/dL are suggestive of increased risk for coronary artery disease. Results > or=to 60 mg/dL are considered a negative risk factor. 56 Per NCEP ATP III Guidelines: Normal Population <130 Patients with medical conditions: CHD/DM Optimal: <100 Borderline high: 130-159 High: 160-189 Very high: >189 57 INTERPRETATION OF RESULTS: < 20 UNITS NEGATIVE 20-30 UNITS WEAK POSITIVE > 30 UNITS MODERATE TO STRONG POSITIVE The following result was obtained with the [employer] Lite Gliadin IgA II. Results obtained with other manufacturers' assay methods may not be used interchangeably. The magnitude of the reported IgA level cannot be correlated to an endpoint titer. 58 INTERPRETATION OF RESULTS: < 20 UNITS NEGATIVE 20-30 UNITS WEAK POSITIVE > 30 UNITS MODERATE TO STRONG POSITIVE The following result was obtained with the [employer] Lite Gliadin IgG II. Results obtained with other manufacturers' assay methods may not be used interchangeably. The magnitude of the reported IgG levels cannot be correlated to an endpoint titer. 59 INTERPRETATION OF RESULTS: < 20 UNITS NEGATIVE 20-30 UNITS WEAK POSITIVE > 30 UNITS MODERATE TO STRONG POSITIVE The following result was obtained with the [employer] QUANTA Lite h-tTG IgA [place]. Results obtained with other manufacturers' assay methods may not be used interchangeably. The magnitude of the reported IgA level cannot be correlated to an endpoint titer. Performed at [address] [place] [address] 60 INTERPRETATION OF RESULTS: < 20 UNITS NEGATIVE 20-30 UNITS WEAK POSITIVE > 30 UNITS MODERATE TO STRONG POSITIVE The following result was obtained with the [employer] QUANTA Lite h-tTG IgG [place]. Results obtained with other manufacturers' assay methods may not be used interchangeably. The magnitude of the reported IgG levels cannot be correlated to an endpoint titer. Performed at [address] [place] [address] Unless otherwise specified, testing performed by [facility] [address] [place] [id number] 61 < 0.90 NEGATIVE > 0.89 AND < 1.09 INDETERMINATE > 1.09 POSITIVE Unless otherwise specified, testing performed by [facility] [address] [place] [id number] 62 Reference range: <=0.8 INTERPRETIVE INFORMATION: Helicobacter Pylori Ab, IgM 0.8 EV or Less .......... Negative: No significant level of IgM antibody to H.pylori detected. 0.9-1.1 EV .............. Equivocal: Repeat testing in 10-14 days may be helpful. 1.2 EV or Greater ....... Positive: IgM antibody to H. pylori detected, suggestive of an active infection. Gastric colonization by Helicobacter pylori has been implicated in the development of some cases of gastritis and peptic or duodenal ulcer. The clinical utility of H. pylori antibody, IgM measurement has not been clearly established. For additional information, refer to Helicobacter pylori topic at [facility] Test developed and characteristics determined by [facility]. See Compliance Statement B: [facility] Performed by [facility], [address] [place] [address] [email or web address], Diomedes Cantu MD, Lab. Director Unless otherwise specified, testing performed by [facility] [address] [place] [id number] 3 mos Fastin hours 3 mos Fastin hours 3 mos Fastin hours 3 mos Fastin hours 64 Concerning GFR Guidelines: Normal function or mild renal disease, if clinically at risk: >/=60 mL/min Moderately decreased: 30-59 Severely decreased: 15-29 Renal failure: <15 Glomerular Filtration Rate (GFR) is estimated based on the MDRD equation, which assumes a steady state for creatinine as recommended by the National Kidney Disease Education Program in conjunction with the National Institutes of Health and the National Kidney Foundation. Clinical conditions in which it may be necessary to measure GFR by using clearance methods include extremes of age and body size, severe malnutrition or obesity, diseases of skeletal muscle, paraplegia or quadriplegia, vegetarian diet, rapidly changing kidney function, and calculation of the dose of potentially toxic drugs that are excreted by the kidneys. 65 Concerning GFR Guidelines for Americans: Normal function or mild renal disease, if clinically at risk: >/=60 mL/min Moderately decreased: 30-59 Severely decreased: 15-29 Renal failure: <15 66 today 67 137 Specimen Grossly Lipemic 68 Concerning GFR Guidelines: Normal function or mild renal disease, if clinically at risk: >/=60 mL/min Moderately decreased: 30-59 Severely decreased: 15-29 Renal failure: <15 Glomerular Filtration Rate (GFR) is estimated based on the MDRD equation, which assumes a steady state for creatinine as recommended by the National Kidney Disease Education Program in conjunction with the National Institutes of Health and the National Kidney Foundation. Clinical conditions in which it may be necessary to measure GFR by using clearance methods include extremes of age and body size, severe malnutrition or obesity, diseases of skeletal muscle, paraplegia or quadriplegia, vegetarian diet, rapidly changing kidney function, and calculation of the dose of potentially toxic drugs that are excreted by the kidneys. 69 Concerning GFR Guidelines for Americans: Normal function or mild renal disease, if clinically at risk: >/=60 mL/min Moderately decreased: 30-59 Severely decreased: 15-29 Renal failure: <15 70 Reference Guidelines*: Desirable: ........... < 200 mg/dL Borderline High: ..... 200-239 mg/dL High: ................ >=240 mg/dL * The National Cholesterol Education Program (NCEP) 71 Reference Guidelines*: Normal: ............. < 150 mg/dL Borderline High: .... 150-199 mg/dL High: ............... 200-499 mg/dL Very High: .......... > 500 mg/dL * Source: National Cholesterol Education Program (NCEP) 72 Reference Guidelines*: Low HDL: ..... < 40 mg/dL Normal: ..... 40-60 mg/dL Desirable: ... > 60 mg/dL *The National Cholesterol Education Program(NCEP) 73 Test not performed (LDL CANNOT BE CALCULATED FOR TRIGS >400 mg/dL) 74 Vitamin D deficiency has been defined by the [place] of Medicine and an Endocrine Society practice guideline as a level of serum 25-OH vitamin D less than 20 ng/mL (1,2). The Endocrine Society went on to further define vitamin D insufficiency as a level between 21 and 29 ng/mL (2). 1. IOM ([place] of Medicine). 2010. Dietary reference intakes for calcium and D. [place]: The National Academies Press. 2. Magy STONE, Ashley RAO, Verónica DOWNING, et al. Evaluation, treatment, and prevention of vitamin D deficiency: an Endocrine Society clinical practice guideline. JCEM. 2010; 96(7):1911-30. Performed at: [facility] [place] [id number] Life Educator: Sheila Villalta MD, Phone: [phone] 75 Note: Persistent reduction for 3 months or more in an eGFR <60 mL/min/1.73 m2 defines CKD. Patients with eGFR values >/=60 mL/min/1.73 m2 may also have CKD if evidence of persistent proteinuria is present. The original MDRD equation for estimated GFR is not valid for patients less than 18 years of age. Additional information may be found at www.kdoqi.org. 76 NOTE CHANGE IN B12 REFERENCE RANGE 77 [facility] [address] [place] [address], [address] Phone [place] [id number] SURGICAL PATHOLOGY REPORT Name: Rodrick Montalvo Pathology #: [id number] : 1965 (Age: 48) Sex: M Location: [facility] Med. Rec. # [id number] Date of Procedure: 09/01/2013 Billing #: [id number] Date Received: 09/01/2013 Requisition #: [id number] Physician(s): ANUJA SALOMON MD Specimen(s) Received: Mid back Clinical Information: Hyperpigmented umbilicated papule 5 mm on the mid back, itchy and inflamed. Neoplasm uncertain behavior. 238.2 Gross Description: Specimen received in formalin and labeled "upper mid back" is a álvarez to eckert smooth to wrinkled rubbery irregular polypoid tissue fragment measuring 0.7 cm in greatest dimension. The specimen is bisected and submitted entirely. (1 block) jib /KBS Diagnosis: MID BACK, INTRADERMAL NEVUS. Reported: 09/02/2013 Electronic Signature cf Monty Victor MD [facility] ICD-9 Codes: 216.9 78 For -Gu[place] patients multiply result by 1.180 Procedures Date Code Description Status 10/07/2018 81622 Brief Emotional/Behav Assessment W/ Scoring Doc Per Completed Standard Inst 01/01/2018 15155 Brief Emotional/Behav Assessment W/ Scoring Doc Per Completed Standard Inst 08/27/2016 64457 Electrocardiogram Complete Completed 08/22/2014 21998 Measure Blood Oxygen Level Single Determination Completed 10/18/2013 28283 Measure Blood Oxygen Level Single Determination Completed 09/01/2013 31302 Excise Benign Lesion <.6CM Trunk/Arm/Leg Completed 09/01/2013 63018 Remove Skin Tags Up To 15 Completed Encounters Type Date Location Provider Dx Diagnosis Office Visit 11/23/2018 [facility] Anuja Salomon MD E55.9 Vitamin D deficiency, 4:15p unspecified F40.9 Phobic anxiety disorder, unspecified F41.1 Generalized anxiety disorder E78.1 Pure hyperglyceridemia G47.00 Insomnia, unspecified R73.9 Hyperglycemia, unspecified Z68.28 Body mass index (BMI) 28.0-28.9, adult Office Visit 10/07/2018 10:30a [facility] Anuja Salomon MD I10 Essential ( primary) hypertension Z13.31 Encounter for screening for depression Z68.28 Body mass index (BMI) 28.0-28.9, adult Office Visit 05/18/2018 3:30p [facility] Anuja Salomon MD E55.9 Vitamin D deficiency, unspecified F40.9 Phobic anxiety disorder, unspecified I10 Essential (primary) hypertension F41.1 Generalized anxiety disorder E78.1 Pure hyperglyceridemia G47.00 Insomnia, unspecified M25.649 Stiffness of unspecified hand, not elsewhere classified M72.2 Plantar fascial fibromatosis Z12.11 Encounter for screening for malignant neoplasm of colon Z12.5 Encounter for screening for malignant neoplasm of prostate R73.01 Impaired fasting glucose Z68.28 Body mass index (BMI) 28.0-28.9, adult Office Visit 02/10/2018 3:00p [facility] Anuja Salomon MD F41.1 Generalized anxiety disorder R73.01 Impaired fasting glucose Z68.28 Body mass index (BMI) 28.0-28.9, adult Office Visit 01/01/2018 4:00p [facility] Anuja Salomon MD E55.9 Vitamin D deficiency, unspecified F40.9 Phobic anxiety disorder, unspecified I10 Essential (primary) hypertension F41.1 Generalized anxiety disorder E78.1 Pure hyperglyceridemia G47.00 Insomnia, unspecified M25.649 Stiffness of unspecified hand, not elsewhere classified Z68.28 Body mass index (BMI) 28.0-28.9, adult Office Visit 11/19/2017 3:45p [facility] Jael Myers PA M79.645 Pain in LEFT finger(s) Z68.29 Body mass index (BMI) 29.0-29.9, adult Office Visit 07/04/2017 4:15p [facility] Anuja Salomon MD E55.9 Vitamin D deficiency, unspecified F40.9 Phobic anxiety disorder, unspecified I10 Essential (primary) hypertension F41.1 Generalized anxiety disorder E78.1 Pure hyperglyceridemia G47.00 Insomnia, unspecified Office Visit 04/03/2017 4:00p [facility] Anuja Salomon MD E55.9 Vitamin D deficiency, unspecified F40.9 Phobic anxiety disorder, unspecified I10 Essential (primary) hypertension F41.1 Generalized anxiety disorder G47.00 Insomnia, unspecified E78.1 Pure hyperglyceridemia M79.672 Pain in LEFT foot Z12.11 Encounter for screening for malignant neoplasm of colon Office Visit 12/31/2016 3:30p [facility] Anuja Salomon MD E55.9 Vitamin D deficiency, unspecified F40.9 Phobic anxiety disorder, unspecified I10 Essential (primary) hypertension F41.1 Generalized anxiety disorder E78.1 Pure hyperglyceridemia G47.00 Insomnia, unspecified R51 Headache Office Visit 11/13/2016 9:45a [facility] Anuja Salomon MD R51 Headache K64.9 Unspecified hemorrhoids Office Visit 10/30/2016 9:45a [facility] Anuja Salomon MD R51 Headache Office Visit 10/01/2016 2:30p [facility] Anuja Salomon MD Z00.00 Encntr for general adult medical exam w/o abnormal findings E55.9 Vitamin D deficiency, unspecified F40.9 Phobic anxiety disorder, unspecified I10 Essential (primary) hypertension F41.1 Generalized anxiety disorder E78.1 Pure hyperglyceridemia Z12.11 Encounter for screening for malignant neoplasm of colon R51 Headache Z68.28 Body mass index (BMI) 28.0-28.9, adult R74.0 Nonspec elev of levels of transamns & lactic acid dehydrgnse R73.01 Impaired fasting glucose Office Visit 08/27/2016 3:45p [facility] Anuja Salomon MD R51 Headache R00.2 Palpitations R07.9 Chest pain, unspecified F40.9 Phobic anxiety disorder, unspecified Office Visit 03/28/2016 3:00p [facility] Anuja Salomon MD E55.9 Vitamin D deficiency, unspecified F40.9 Phobic anxiety disorder, unspecified I10 Essential (primary) hypertension F41.1 Generalized anxiety disorder E78.1 Pure hyperglyceridemia Z12.5 Encounter for screening for malignant neoplasm of prostate M77.11 Lateral epicondylitis, RIGHT elbow Office Visit 10/11/2015 10:00a [facility] Anuja Salomon MD E55.9 Vitamin D deficiency, unspecified F40.9 Phobic anxiety disorder, unspecified I10 Essential (primary) hypertension F41.1 Generalized anxiety disorder R73.01 Impaired fasting glucose J30.9 Allergic rhinitis, unspecified Office Visit 09/20/2015 11:15a [facility] Anuja Salomon MD K52.9 Noninfective gastroenteritis and colitis, unspecified Office Visit 07/14/2015 9:45a [facility] Anuja Salomon MD E55.9 Vitamin D deficiency, unspecified F40.9 Phobic anxiety disorder, unspecified I10 Essential (primary) hypertension F41.1 Generalized anxiety disorder E78.1 Pure hyperglyceridemia R73.01 Impaired fasting glucose M25.531 Pain in RIGHT wrist K30 Functional dyspepsia Office Visit 04/21/2015 10:00a [facility] Anuja Salomon MD E55.9 Vitamin D deficiency, unspecified F40.9 Phobic anxiety disorder, unspecified I10 Essential (primary) hypertension F41.1 Generalized anxiety disorder E78.1 Pure hyperglyceridemia R73.01 Impaired fasting glucose S62.606A Fracture of unsp phalanx of RIGHT little finger, init S61.217A Lac w/o fb of l little finger w/o damage to nail, init Office Visit 01/31/2015 3:15p Anuja Vicente MD 300.00 Anxiety State Unspec 333.94 Restless Leg Syndrome 268.9 Vitamin D Deficiency Unspec Office Visit 01/05/2015 1:30p Anuja Vicente MD 300.00 Anxiety State Unspec 401.1 Hypertension Benign 300.20 Phobia Unspec 268.9 Vitamin D Deficiency Unspec 272.1 Hypertriglyceridemia Pure 790.21 Impaired Fasting Glucose Office Visit 08/22/2014 4:00p Anuja Vicente MD 786.2 Cough 333.94 Restless Leg Syndrome Office Visit 07/25/2014 2:30p [facility] Anuja Salomon MD 268.9 Vitamin D Deficiency Unspec 300.20 Phobia Unspec 401.1 Hypertension Benign 300.00 Anxiety State Unspec 272.2 Hyperlipidemia Mixed 465.9 URI Upper Respiratory Infections Acute Unspec Sites Plan of Treatment Future Appointment(s):02/24/2019 10:30 am - Schedule, Laboratory at [facility]2018 2:30 pm - Anuja Salomon MD at [facility]01/07/2019 - Anuja Salomon MDE11.65 Type 2 diabetes mellitus with hyperglycemiaNew Medication:Metformin HCL 500 mg - Take 1 Tablet By Mouth Twice DailyNew Labs:Basic (BMP), Ordered: Hemoglobin A1c, Ordered: 01/07/19Comments:Discussed results of labs. He has rapid progression of diabetes, in spite of recent changes in diet. I am concerned that his insulin level is relatively low relative to his glucose. I suspect he may be developing type 1 diabetes. Will refer to endocrine for evaluation and treatment. In the meantime, will start metformin 500 mg 1 tablet BID daily. Education given on medications, administration, and side effects. The patient has been referred to see a certified adapted physical educator, but this appointment has not happened yet. Priority referral to Dr. Rodriguez was also provided. The patient was explained about the signs and symptoms of type 1 diabetes. advised to go to er if he develops symptoms suggestive of dka.Referral :Prasanth Rodriguez MD,Follow up:Please ask for referral to a certified adapted physical educator and needs diet information. Follow up as scheduled. We will check with labs prior.E78.1 Pure hyperglyceridemiaComments:improving with change in diet - the triglycerides remain elevated, but much better. will discuss a statin at his next office slegmW01.9 Vitamin D deficiency, unspecifiedComments:continue dtsysjmboiG28.9 Phobic anxiety disorder, unspecifiedComments:has been well controlled with as needed use of ondansetron - this works when it is needed . I am concerned that metformin may trigger this.F41.1 Generalized anxiety disorderComments:He do not want to increase the dose of venlafaxine. anxiety worsening with new diagnosis of diabetes.G47.00 Insomnia, unspecifiedComments: Manageable without any ltppuvbkpmD87.26 Body mass index (BMI) 26.0-26.9, adultComments:He has lost 10 pounds with diet changes. follow closelyAllFollow up:follow-up as scheduled on 03.16 with labs prior
--- NOTE | 2019-01-20 07:58 | UC ---
UC General HPI - HPI Summary HPI Summary: 53 yo male presents here with severe fatigue [facility] feels very low energy/sleepy no CP or SOB no tremors or sweats - History of Current Complaint Chief Complaint: UCGeneralIllness Stated Complaint: BLOOD SUGAR CHECK Time Seen by Provider: 01/20/19 07:48 Hx Obtained From: Patient Onset/Duration: Gradual Onset, Lasting Hours Timing: Constant Onset Severity: Moderate Current Severity: Moderate Pain Intensity: 0 Pain Location at: no pain Associated Signs & Symptoms: Positive: Weakness - generalized fatigue/ lassitube. Negative: Agitation, Abdominal Pain, Anticoagulation Therapy, Back Pain, Confusion, Cough, Chest Pain, Decreased Responsiveness, Dizziness, Diarrhea, Dysuria, Decreased Oral Intake, Diaphoresis, Edema, Fever, Headache, Hematemesis, Hemoptysis, Immunocompromised, In-Dwelling Medication Device, Melena, Nausea, Palpitations, Recent Medication Changes, Syncope, SOB, Trauma, Vomiting, Wheezing - Allergy/Home Medications Allergies/Adverse Reactions: Allergies Allergy/AdvReac Type Severity Reaction Status Date / Time rice AdvReac GI Upset Verified 10/06/18 22:07 Home Medications: Home Medications Empaglifozin (NF) [Jardiance] 12.5 mg PO DAILY 01/20/19 [History Confirmed 01/20] PMH/Surg Hx/FS Hx/Imm Hx Previously Healthy: Yes Endocrine History: Diabetes, Dyslipidemia Cardiovascular History: Hypertension - Surgical History Surgical History: Yes Surgery Procedure, Year, and Place: r leg benign tumor - Family History Known Family History: Positive: Hypertension - Social History Alcohol Use: None Substance Use Type: None Smoking Status (MU): Never Smoked Tobacco - Immunization History Most Recent Influenza Vaccination: none Most Recent Tetanus Shot: 04/20/15 Review of Systems All Other Systems Reviewed And Are Negative: Yes Constitutional: Positive: Fatigue Skin: Positive: Negative Eyes: Positive: Negative ENT: Positive: Negative Respiratory: Positive: Negative Cardiovascular: Positive: Negative Gastrointestinal: Positive: Negative Genitourinary: Positive: Negative Motor: Positive: Negative Neurovascular: Positive: Negative Musculoskeletal: Positive: Negative Neurological: Positive: Negative Psychological: Positive: Negative Physical Exam Triage Information Reviewed: Yes Appearance: Well-Appearing, No Pain Distress, Well-Nourished Vital Signs: Initial Vital Signs Temp 98.6 F 01/20/19 07:41 Pulse 77 01/20/19 07:41 Resp 15 01/20/19 07:41 BP 146/79 01/20/19 07:41 Pulse Ox 99 01/20/19 07:41 Vital Signs Reviewed: Yes Eyes: Positive: Conjunctiva Clear ENT: Positive: Hearing grossly normal. Negative: Nasal congestion, Nasal drainage, Trismus, Muffled voice, Hoarse voice Dental Exam: Normal Neck: Positive: Supple, Nontender Respiratory: Positive: Lungs clear, Normal breath sounds, No respiratory distress, No accessory muscle use Cardiovascular: Positive: RRR, No Murmur Musculoskeletal: Positive: ROM Intact, No Edema Neurological: Positive: Alert, Muscle Tone Normal Psychological Exam: Normal Skin Exam: Normal Diagnostics - Laboratory Lab Results: BS 190 Course/Dx - Diagnoses Provider Diagnosis: Fatigue Discharge - Sign-Out/Discharge Documenting (check all that apply): Patient Departure All imaging exams completed and their final reports reviewed: No Studies - Discharge Plan Condition: Stable Disposition: HOME Patient Education Materials: Fatigue (ED) Referrals: Anuja Salomon MD [Primary Care Provider] - Additional Instructions: your blood sugar here was 190 please call you this AM to discuss your symptoms I am not sure if this could be attributed to the the medicine you are taking - Billing Disposition and Condition Condition: STABLE Disposition: Home
[2019-01-20 12:21] VITALS: BP 146/79
== END 2019-01-20 08:02 | disposition home or self-care (01) ==
LOC: UCCORT 07:29
DX: R53.83 Other fatigue (principal); E11.9 Type 2 diabetes mellitus without complications; Z79.84 Long term (current) use of oral hypoglycemic drugs; I10 Essential (primary) hypertension
CPT/HCPCS: 99211; G0463

== ENCOUNTER 2019-05-12 20:32 | Emergency (ER) | payer BC ==
--- OUTSIDE RECORDS SUMMARY | 2019-05-12 20:38 | XMS REPORT | Continuity of Care Document ---
:1965 External Reference #:[id number] Author Name Anuja Salomon MD Address [address] [place] [id number] Care Team Providers Name Role Phone Saran Marrero DR - Orthopaedic Care Team Information [employer]ic [phone] Surgery [facility] Diabetes Education - Diabetes Care Team Information [employer] Educator Prasanth Rodriguez MD Care Team Information [employer] [phone] [facility] Food And Nutrition Counseling Care Team Information [employer] [phone] Problems Active Problems Provider Date Vitamin D deficiency Anuja Salomon MD Onset: 10/28/2013 Phobia Anuja Salomon MD Onset: 07/20/2013 Anxiety state Anuja Salomon MD Onset: 07/20/2013 Pure hyperglyceridemia Anuja Salomon MD Onset: 01/05/2015 Insomnia Anuja Salomon MD Onset: 12/31/2016 Hand joint stiff Anuja Salomon MD Onset: 01/01/2018 Impaired fasting glycaemia Anuja Salomon MD Onset: 05/18/2018 Type II diabetes mellitus uncontrolled Anuja Salomon MD Onset: 03/16/2019 Moderate major depression, single episode Anuja Salomon MD Onset: 2018 Social History Type Date Description Comments Sex Unknown ETOH Use Denies alcohol use Tobacco Use Start: Unknown Patient has never smoked Allergies, Adverse Reactions, Alerts Description No Known Drug Allergies Medications Active Medications SIG Qnty Indications Ordering Date Provider Venlafaxine HCL ER take 1 capsule 90caps F41.1 Anuja Salomon, 11/30/2018 75mg by mouth every MD Caps ER 24HR day Bupropion take 1 tablet by 90tabs F41.1 Anuja Salomon, 09/04/2018 Hydrochloride ER (XL) mouth every day MD 150mg Tablets ER 24HR Hydrocortisone apply twice a 28.350gm K64.9 Anuja Salomon, 11/13/2016 2.5% Cream day if needed MD until resolved Ondansetron 1 tablet by 30tabs F40.9 Anuja Salomon, 10/01/2016 4mg Tablets mouth every 8 MD Dispers hours as needed for nausea/vomiting Excedrin Extra as needed for Unknown Strength migraines [phone] Tablets Jardiance 1 Tab PO qd E11.65 Unknown 25mg Tablets History Medications Metformin HCL take 1 tablet 180tabs E11.65 Anuja Salomon, 01/07/2019 - 500mg by mouth twice MD 03/15/2019 Tablets daily Venlafaxine HCL ER 1 by mouth 90tabs F41.1 Anuja Salomon, 10/14/2018 - every day MD 11/30/2018 75mg Tablets ER 24HR Immunizations CPT Code Status Date Vaccine Lot # [id number] Given 05/07/2018 Influenza Virus Vaccine,Quadrivalent,Split,Preserv Free, 0.5mL,Im Q2039 Given 06/12/2017 Flu Vaccine NOS Q2037 Given 06/20/2015 Fluvirin Immunization 92077 Given 04/21/2015 Tetanus And Diptheria Toxoids For Adult Use-preservative free 61030 Given 04/06/2012 Tdap (Adacel) Ages 7 And Above Only 16511 Refused 05/18/2018 Shingrix (Shingles) Zoster Vaccine HZV, Recombinant , Subunit, Adj Vital Signs Date Vital Result Comment 03/16/2019 2:49pm Weight 178.00 lb Heart Rate 86 /min BP Systolic 120 mmHg BP Diastolic 74 mmHg Respiratory Rate 18 /min Height 68.75 inches 5'8.75" O2 % BldC Oximetry 98 % Ra BMI (Body Mass Index) 26.5 kg/m2 01/07/2019 1:58pm Weight 180.00 lb Heart Rate 84 /min BP Systolic 124 mmHg BP Diastolic 76 mmHg Respiratory Rate 18 /min Height 68.75 inches 5'8.75" O2 % BldC Oximetry 98 % Ra BMI (Body Mass Index) 26.8 kg/m2 Results Test Date Facility Test Result H/L Range Note Basic (BMP) 02/25/2019 [facility] Sodium 140 mmol/L 135-146 1, 2 Potassium 4.2 mmol/L 3.5-5.2 Chloride# 103 mmol/L 97-110 3 Carbon Dioxide 26 mmol/L 24-34 Glucose 145 mg/dL High 70-105 BUN 20 mg/dL 6-26 Creatinine 1.0 mg/dL 0.5-1.4 Calcium 9.7 mg/dL 8.5-10.5 4 Female Egfr 62 >60 5 Male Egfr 82 >60 6 Anion Gap 11 mmol/L 5-15 7 Hemoglobin A1c 02/25/2019 [facility] Hemoglobin A1c 6.8 % High 4.1-5.9 Estimated Average Glucose Calc 148 mg/dL High 71-140 Laboratory test 01/20/2019 [facility] Point of Care 190 mg/dL High 70-100 8 finding Glucose Lipid 12/28/2018 [facility] Cholesterol 227 mg/dL High 50-199 9 Triglycerides 388 mg/dL High 30-200 HDL 30 mg/dL 29-71 10 Chol/ HDL Ratio 7.6 ratio High 4.0-6.7 VLDL 78 mg/dL High 2-29 LDL (Calc) 120 mg/dL High 20-99 11 Hemoglobin A1c 12/28/2018 [facility] Hemoglobin A1c 8.6 % High 4.1-5.9 Estimated Average Glucose Calc 200 mg/dL High 71-140 Comprehensive Met Panel-[facility] 12/28/2018 [facility] Sodium 136 mmol/L 135- 146 12 Potassium 4.3 mmol/L 3.5-5.2 Chloride# 100 mmol/L 97-110 13 Carbon Dioxide 26 mmol/L 24-34 Calcium 9.4 mg/dL 8.5-10.5 14 Glucose 295 mg/dL High 70-105 BUN 15 mg/dL 6-26 Creatinine 0.9 mg/dL 0.5-1.4 Total Protein 6.3 g/dL 6.0-8.0 Albumin 4.7 g/dL 3.6-4.9 Globulin 1.6 g/dL Low 2.0-3.5 A/G Ratio 2.9 Ratio High 1.0-2.2 Total Bilirubin 0.9 mg/dL 0.1-1.3 Alkaline Phosphatase 84 U/L 24-140 Alt 41 U/L 3-42 Ast 26 U/L 8-42 Anion Gap 10 mmol/L 5-15 15 Female Egfr 73 >60 16 Male Egfr 98 >60 17 Laboratory test finding 12/28/2018 [facility] Insulin 14.0 mIU/L (2.6-37.6 ) 18 Laboratory test finding 11/13/2018 [facility] PSA 1.520 ng/mL 0.000-4.000 19, 20 CBC with Auto Diff-[facility] 11/13/2018 [facility] WBC 6.4 K/uL 4.1-11.0 RBC 4.66 M/uL 4.60-6.10 Hemoglobin 15.0 gm/dL 13.5-18.0 Hematocrit 42.3 % 41.0-53.0 MCV 90.8 fL 80.0-97.0 MCH 32.2 pg High 27.0-32.0 MCHC 35.5 g/dL 32.0-36.0 21 RDW 14.0 % 11.5-14.5 PLT Count 178 K/ul 140-400 MPV 8.6 FL 7.1-10.7 Neutrophil 61.2 % 35.0-75.0 Lymphocyte 29.5 % 16.0-52.0 Monocyte 7.3 % 2.0-10.0 Eosinophil 1.3 % 0.0-5.0 Basophil 0.7 % 0.0-4.0 Abs Neutrophils 3.9 K/uL 2.1-8.0 Abs Lymphocytes 1.9 K/uL 0.8-5.5 Abs Monocytes 0.5 K/uL 0.1-1.0 Abs Eosinophils 0.1 K/uL 0.0-0.5 Abs Basophils 0.0 K/uL 0.0-0.3 Comprehensive Met Panel-[facility] 11/13/2018 [facility] Sodium 134 mmol/L Low 135 -146 22 Potassium 4.2 mmol/L 3.5-5.2 23 Chloride# 98 mmol/L 97-110 24 Carbon Dioxide 24 mmol/L 24-34 Calcium 9.4 mg/dL 8.5-10.5 25 Glucose 322 mg/dL High 70-105 BUN 15 mg/dL 6-26 Creatinine 0.8 mg/dL 0.5-1.4 Total Protein 6.6 g/dL 6.0-8.0 Albumin 4.7 g/dL 3.6-4.9 Globulin 1.9 g/dL Low 2.0-3.5 A/G Ratio 2.5 Ratio High 1.0-2.2 Total Bilirubin 0.9 mg/dL 0.1-1.3 Alkaline Phosphatase 71 U/L 24-140 Alt 64 U/L High 3-42 Ast 41 U/L 8-42 Anion Gap 12 mmol/L 5-15 26 Female Egfr 81 >60 27 Male Egfr 101 >60 28 Laboratory test 11/13/2018 [facility] TSH 2.15 uIU/mL 0.35-4.94 finding Hemoglobin A1c 11/13/2018 [facility] Hemoglobin A1c 8.2 % High 4.1-5.9 Estimated Average Glucose Calc 189 mg/dL High 71-140 Lipid 11/13/2018 [facility] Cholesterol 282 mg/dL High 50-199 Triglycerides 1806 mg/dL High 30-200 29 HDL 29 mg/dL 29-71 30 Chol/ HDL Ratio 9.6 ratio High 4.0-6.7 1 prior to office visit in february 2 Updated reference range on new analyzer 3 Updated reference range on new analyzer 4 Updated reference range 10-21-2018 5 Concerning GFR Guidelines for Americans: Normal function or mild renal disease, if clinically at risk: >/= 60 mL/min Moderately decreased: 30-59 Severely decreased: 15-29 Renal failure: <15 There is reduced accuracy above 60ml/min/1.73 m squared, but the numeric value may be clinically useful in the near 60 range 6 Concerning GFR Guidelines: Normal function or mild renal disease, if clinically at risk: >/= 60 mL/min Moderately decreased: 30-59 Severely decreased: 15-29 [...] drugs that are excreted by the kidneys. 7 Updated Reference Range 8 MD to be notified Smoked Meat Preparer: [id number] 9 6 weeks 10 Per NCEP ATP III Guidelines: Results lower than 40 mg/dL are suggestive of increased risk for coronary artery disease. Results > or = to 60 mg/dL are considered a negative risk factor. 11 Per NCEP ATP III Guidelines: Normal Population <130 Patients with medical conditions: CHD/DM Optimal: <100 Borderline high: 130-159 High: 160-189 Very high: >189 12 Updated reference range on new analyzer 13 Updated reference range on new analyzer 14 Updated reference range 10-21-2018 15 Updated Reference Range 16 Concerning GFR Guidelines for Americans: Normal function or mild renal disease, if clinically at risk: >/= 60 mL/min Moderately decreased: 30-59 Severely decreased: 15-29 Renal failure: <15 There is reduced accuracy above 60ml/min/1.73 m squared, but the numeric value may be clinically useful in the near 60 range 17 Concerning GFR Guidelines: Normal function or mild renal disease, if clinically at risk: >/= 60 mL/min Moderately decreased: 30-59 Severely decreased: 15-29 [...] drugs that are excreted by the kidneys. 18 ADULT REFERENCE RANGE New Assay and Reference Range in use 02/09/18. Unless otherwise specified, testing performed by [facility] [address] [place] [id number] 19 6 mos 20 Beginning 08/18/06 PSA values assayed at [facility] uses chemiluminescence methodology manufactured by [employer] for use on the DXI analyzer. Values obtained with different assay methods or kits can not be used interchangeably. Serum PSA measurement is not an absolute test for malignancy. The PSA value should be used in conjunction with information available from clinical evaluation and other diagnostic procedures. 21 sample very lipemic sample was prewarmed 22 Updated reference range on new analyzer 23 Specimen Slightly Hemolyzed 24 Updated reference range on new analyzer 25 Updated reference range 10-21-2018 26 Updated Reference Range 27 Concerning GFR Guidelines for Americans: Normal function or mild renal disease, if clinically at risk: >/= 60 mL/min Moderately decreased: 30-59 Severely decreased: 15-29 Renal failure: <15 There is reduced accuracy above 60ml/min/1.73 m squared, but the numeric value may be clinically useful in the near 60 range 28 Concerning GFR Guidelines: Normal function or mild renal disease, if clinically at risk: >/= 60 mL/min Moderately decreased: 30-59 Severely decreased: 15-29 [...] drugs that are excreted by the kidneys. 29 Due to a triglyceride result of >1300 a direct LDL cannot be performed. In addition an LDL and VLDL cannot be calculated. Specimen Slightly Lipemic 30 Per NCEP ATP III Guidelines: Results lower than 40 mg/dL are suggestive of increased risk for coronary artery disease. Results > or = to 60 mg/dL are considered a negative risk factor. Procedures Date Code Description Status 03/16/2019 88009 Brief Emotional/Behav Assessment W/ Scoring Doc Per Completed [facility] 10/07/2018 63978 Brief Emotional/Behav Assessment W/ Scoring Doc Per Completed [facility] Medical Devices Description No Information Available Encounters Type Date Location Provider Dx Diagnosis Office Visit 01/07/2019 [facility] Anuja Salomon MD E11.65 Type 2 diabetes 2:00p mellitus with hyperglycemia E78.1 Pure hyperglyceridemia E55.9 Vitamin D deficiency, unspecified F40.9 Phobic anxiety disorder, unspecified F41.1 Generalized anxiety disorder G47.00 Insomnia, unspecified Z68.26 Body mass index (BMI) 26.0-26.9, adult Office Visit 11/23/2018 4:15p [facility] Anuja Salomon MD E55.9 Vitamin D deficiency, unspecified F40.9 Phobic anxiety disorder, unspecified F41.1 Generalized anxiety disorder E78.1 Pure hyperglyceridemia G47.00 Insomnia, unspecified R73.9 Hyperglycemia, unspecified Z68.28 Body mass index (BMI) 28.0-28.9, adult Office Visit 10/07/2018 10:30a [facility] Anuja Salomon MD I10 Essential ( primary) hypertension Z13.31 Encounter for screening for depression Z68.28 Body mass index (BMI) 28.0-28.9, adult Assessments Date Code Description Provider 03/16/2019 E55.9 Vitamin D deficiency Anuja Salomon MD 03/16/2019 F40.9 Phobia Anuja Salomon MD 03/16/2019 F41.1 Anxiety state Anuja Salomon MD 03/16/2019 E78.1 Pure hyperglyceridemia Anuja Salomon MD 03/16/2019 G47.00 Insomnia, unspecified Anuja Salomon MD 03/16/2019 M25.649 Stiffness of unspecified hand, not elsewhere Anuja Salomon MD classified 03/16/2019 E11.65 Type 2 diabetes mellitus with hyperglycemia Anuja Salomon MD 03/16/2019 F32.1 Major depressive disorder, single episode, Anuja Salomon MD moderate 03/16/2019 Z68.26 Body mass index (BMI) 26.0-26.9, adult Anuja Salomon MD 02/25/2019 E11.65 Type 2 diabetes mellitus with hyperglycemia Anuja Salomon MD 02/25/2019 E11.65 Type 2 diabetes mellitus with hyperglycemia Schedule, Laboratory 02/25/2019 E11.65 Type 2 diabetes mellitus with hyperglycemia [facility] 02/25/2019 E11.65 Type 2 diabetes mellitus with hyperglycemia [facility] 01/07/2019 E11.65 Type 2 diabetes mellitus with hyperglycemia Anuja Salomon MD 01/07/2019 E78.1 Pure hyperglyceridemia Anuja Salomon MD 01/07/2019 E55.9 Vitamin D deficiency, unspecified Anuja Salomon MD 01/07/2019 F40.9 Phobic anxiety disorder, unspecified Anuja Salomon MD 01/07/2019 F41.1 Generalized anxiety disorder Anuja Salomon MD 01/07/2019 G47.00 Insomnia, unspecified Anuja Salomon MD 01/07/2019 Z68.26 Body mass index (BMI) 26.0-26.9, adult Anuja Salomon MD 12/28/2018 E78.1 Pure hyperglyceridemia Anuja Salomon MD 12/28/2018 E78.1 Pure hyperglyceridemia Schedule, Laboratory 12/28/2018 R73.9 Hyperglycemia, unspecified Anuja Salomon MD 12/28/2018 R73.9 Hyperglycemia, unspecified Schedule, Laboratory 12/28/2018 E78.1 Pure hyperglyceridemia [facility] 12/28/2018 R73.9 Hyperglycemia, unspecified [facility] 11/23/2018 E55.9 Vitamin D deficiency, unspecified Anuja Salomon MD 11/23/2018 F40.9 Phobic anxiety disorder, unspecified Anuja Salomon MD 11/23/2018 F41.1 Generalized anxiety disorder Anuja Salomon MD 11/23/2018 E78.1 Pure hyperglyceridemia Anuja Salomon MD 11/23/2018 G47.00 Insomnia, unspecified Anuja Salomon MD 11/23/2018 R73.9 Hyperglycemia, unspecified Anuja Salomon MD 11/23/2018 Z68.28 Body mass index (BMI) 28.0-28.9, adult Anuja Salomon MD 11/13/2018 Z12.5 Encounter for screening for malignant Anuja Salomon MD neoplasm of prostate 11/13/2018 Z12.5 Encounter for screening for malignant Schedule, Laboratory neoplasm of prostate 11/13/2018 I10 Essential (primary) hypertension Anuja Salomon MD 11/13/2018 I10 Essential (primary) hypertension Schedule, Laboratory 11/13/2018 R73.01 Impaired fasting glucose Anuja Salomon MD 11/13/2018 R73.01 Impaired fasting glucose Schedule, Laboratory 11/13/2018 Z12.5 Encounter for screening for malignant [facility] neoplasm of prostate 11/13/2018 I10 Essential (primary) hypertension [facility] 11/13/2018 R73.01 Impaired fasting glucose [facility] 10/07/2018 I10 Essential (primary) hypertension Anuja Salomon MD 10/07/2018 Z13.31 Encounter for screening for depression Anuja Salomon MD 10/07/2018 Z68.28 Body mass index (BMI) 28.0-28.9, adult Anuja Salomon MD Plan of Treatment Future Appointment(s):09/07/2019 8:20 am - Schedule, Laboratory at [facility]2019 9:30 am - Anuja Salomon MD at [facility]03/16/2019 - Anuja Salomon MDE55.9 Vitamin D deficiencyComments:continue supplementFollow up:6-months follow up with fasting labs prior.F40.9 PhobiaComments:Symptoms controlled with ondansetron as needed.F41.1 Anxiety stateComments:Venlafaxine is helping with the anxiety. Continue current hvzbcnsjjiN24.1 Pure hyperglyceridemiaNew Labs: Lipid, Scheduled: 09/07/19Comments:Improving with change in diet - the triglycerides remain elevated, but much better. We will discussa statin at his next office covppB51.00 Insomnia, unspecifiedComments:Manageable without any medication.M25.649 Stiffness of unspecified hand, not elsewhere classifiedComments:counseled that controlling diabetes will probably help this symptoms . consider nerve conduction studies if symptoms htqnelqT60.65 Type 2 diabetes mellitus with hyperglycemiaComments:Diabetes is controlled with just one medication and is doing MUCH better with diet changes. Encouraged to continue working on healthy lifestyle.. Fasting blood sugar is 145, HbA1c 6.8 at goal. He was advised to cut back on sweet intake.F32.1 Major depressive disorder, single episode, moderateComments:still present but improving . Patient was advised to continue with counselling. He was cautioned about suicidal thoughts and developed a plan for suicidal thoughts. Phq9 was at 21. The patient willcall if his depression and anxiety are getting worse.Z68.26 Body mass index (BMI) 26.0-26.9, adultComments:Your ideal BMI is between 18.5 and 25 - you are close to this range. Continue to work on healthy lifestyle with healthy diet and regular exercise. Functional Status Description No Information Available Mental Status Description No Information Available Referrals Refer to Reason for Referral Status Appt Date Prasanth Rodriguez MD newly diagnosed diabetic with A1c increasing to 8.6 Closed with 10 pound weight loss in 6 weeks, elevated glucose and Insulin level of 14. concerned this could be new onset type 1. please send today's office visit note Please call the patient at work number to schedule [phone] [place] [address] [phone] [facility] Food And Nutrition diet for hyperglycemia - has acute Closed 01/19/2019 Counseling increase in fasting glucose, triglycerides and A1c FORMS FAXED FOR PROVIDER TO REVIEW IN ORDER TO GET AN APPT SCHEDULED/SGROSS/11/24/18 KAYLA CALLED FROM [facility] FOOD [facility] NUTRITION AND SAID THAT HEY HAVE LEFT MESSAGES FOR MR MONTALVO TO RETURN CALL AND STILL HAS NOT DONE SO. I ALSO CALLED AND LMTCB 12/10/SGROSS CALLED AND LEFT ANOTHER MESSAGE TO RETURN CALL AND SEE IF AN APPT HAS BEEN SCHEDULEDYET/SCG/12/18/18 Pt called and states this has not been set up yet, he is waiting to discuss this at his next visit with Dr. Sandoval. 12/[address] [address] [phone]
[2019-05-12 20:42] VITALS: BP 139/89
--- NOTE | 2019-05-12 20:44 | UC ---
Ear Complaint HPI - HPI Summary HPI Summary: Patient is a 53yo male presenting with L ear pain that began this morning and resolved throughout the day but now notes "feeling like something is stuck in his ear." Denies R ear symptoms. Denies URI symptoms. Denies fever and chills. Denies decreased hearing and drainage from ear. Notes he has had to come here in the past to have ears cleaned out. - History of Current Complaint Chief Complaint: UCEar Stated Complaint: LEFT EAR PAIN Hx Obtained From: Patient Severity Currently: None Pain Intensity: 0 Pain Scale Used: 0-10 Numeric - Allergies/Home Medications Allergies/Adverse Reactions: Allergies Allergy/AdvReac Type Severity Reaction Status Date / Time rice AdvReac GI Upset Verified 05/12/19 20:38 PMH/Surg Hx/FS Hx/Imm Hx - Surgical History Surgical History: Yes Surgery Procedure, Year, and Place: r leg benign tumor - Family History Known Family History: Positive: None - no known FH of sinus or ent disease., Hypertension - Social History Alcohol Use: None Substance Use Type: None Smoking Status (MU): Never Smoked Tobacco - Immunization History Most Recent Influenza Vaccination: none Most Recent Tetanus Shot: 04/20/15 Review of Systems All Other Systems Reviewed And Are Negative: No Constitutional: Positive: Negative Eyes: Positive: Negative ENT: Positive: Ear Ache - Left, Other - L ear foeign body sensation Respiratory: Positive: Negative Neurological: Positive: Negative Physical Exam Triage Information Reviewed: Yes Appearance: Well-Appearing, No Pain Distress, Well-Nourished Vital Signs: Initial Vital Signs Temp 98.3 F 05/12/19 20:37 Pulse 76 05/12/19 20:37 Resp 16 05/12/19 20:37 BP 139/89 05/12/19 20:37 Pulse Ox 99 05/12/19 20:37 Vital Signs Reviewed: Yes Eyes: Positive: Conjunctiva Clear ENT: Positive: Hearing grossly normal, Pharynx normal, TMs normal - b/l cerumen impaction noted initially. b/l ear irrigation revealed normal intact TMs w/o sign of infection, Uvula midline. Negative: TM bulging, TM dull, TM red Neck exam: Normal Neck: Positive: Supple, Nontender, No Lymphadenopathy Respiratory Exam: Normal Respiratory: Positive: Lungs clear, Normal breath sounds, No respiratory distress Cardiovascular Exam: Normal Cardiovascular: Positive: RRR Neurological: Positive: Alert Psychological: Positive: Age Appropriate Behavior Ear Complaint Course/Dx - Course Course Of Treatment: B/l ear irrigation revealing normal TMs. Patient states relief of foreign body sensation after irrigation. Instructed to follow up with pcp if pain comes back. Patient voiced understanding and agreed with plan. - Differential Dx/Diagnosis Provider Diagnosis: Impacted cerumen, bilateral Discharge ED - Sign-Out/Discharge Documenting (check all that apply): Patient Departure All imaging exams completed and their final reports reviewed: No Studies - Discharge Plan Condition: Stable Disposition: HOME Referrals: Anuja Salomon MD [Primary Care Provider] - - Billing Disposition and Condition Condition: STABLE Disposition: Home
== END 2019-05-12 21:08 | disposition home or self-care (01) ==
LOC: UCCORT 20:32
DX: H61.23 Impacted cerumen, bilateral (principal); Z91.018 Allergy to other foods
CPT/HCPCS: 99213; G0463